=== PATIENT | female | born 1945 ===

== ENCOUNTER → 2023-05-03 07:55 | Outpatient (REF) | payer MEDICARE, OTHER, SELFPAY | LOC: WOUND 07:55 | PROVIDERS: ATTENDING PHYSICIAN Surgery | DX: I87.2 Venous insufficiency (chronic) (peripheral) (principal); R60.1 Generalized edema; I73.00 Raynaud's syndrome without gangrene | CPT/HCPCS: 99203 ==

== ENCOUNTER 2023-05-23 06:13 | Day surgery (SDC) | payer MEDICARE, OTHER, SELFPAY ==
--- NOTE | 2023-04-19 10:19 | CM ---
Patient is scheduled for lumbar spine surgery on 05/23/23. Spoke with patient prior to surgery via telephone. Introduced role of the Orthopedic Navigator. Patient reports that she lives with her significant other, Stephen, in a one floor apartment. There
is one step to enter. She currently functions independently using a cane. She also has a rolling walker, brace, shower seat and raised toilet seat. She has never had VN services. PCP is Roger Dixon.
Discussed orthopedic program, post surgical plans and tentative plan for patient to return home when directed by surgeon. Patient is in agreement with tentative plan and will have support from her significant other when she goes home.
Plan: Orthopedic Navigator will remain available to assist with the care of patient and will reassess discharge needs after surgery.
[2023-05-01 08:41] VITALS: BMI 33.8
[2023-05-01 15:25] VITALS: BMI 33.8
[2023-05-23] VITALS (16 sets, daily range): BP systolic 0–142; BP diastolic 45–74; PULSE 62; O2SAT 98; BMI 33.8
[2023-05-23] MEDS: TYLENOL 1000 MG PO ×3 (08:35→21:26)
[2023-05-23] MEDS: LYRICA 150 MG PO (08:35)
[2023-05-23] MEDS: SKELAXIN 800 MG PO (08:35)
[2023-05-23] MEDS: NORMOSOL-R 1000 IV ×2 (08:36→14:21)
[2023-05-23] MEDS: VANCOCIN 300 MG IV (08:40)
[2023-05-23] MEDS: VANCOCIN 300 ML IV (08:40)
--- NOTE | 2023-05-23 14:54 | PTCARENOTE ---
Patient admitted from pacu post right L3-L5 Laminectomy with psf.Neurovascular assessment is within normal limits and ongoing.The back dressing is dry and intact.Vital signs are stable.Physical therapy is in the room waiting to get the patient out
of bed.The patient is in her bed with the call snyder in reach.
[2023-05-23] MEDS: ULTRAM 50 MG PO (17:23)
[2023-05-23] MEDS: ANCEF 5 IV (17:24)
[2023-05-23] MEDS: NORMOSOL-R IV (20:25)
[2023-05-23] MEDS: REQUIP 2 MG PO (20:27)
[2023-05-23] MEDS: SENOKOT 17.1999999999999993 MG PO (20:27)
[2023-05-23] MEDS: COLACE 100 MG PO (20:27)
--- NOTE | 2023-05-24 00:11 | PTCARENOTE ---
Pt's temperature oral and axillary have remained low 94.4, rectal at this time 94.7. Pt reports she usually is 96.0. Pt provided warm blankets at this time, will revaluate. BP WNL HR 50
[2023-05-24] MEDS: ANCEF 5 IV (01:08)
[2023-05-24] MEDS: NORMOSOL-R 1000 IV (01:10)
--- NOTE | 2023-05-24 01:41 | PTCARENOTE ---
body temp remains low after warm blankets, house provider notified, Kevin Sykes ordered.
--- NOTE | 2023-05-24 03:00 | PTCARENOTE ---
Pt voided previous shift, pt reports she feels like she does not need to void and does not want to attempt @ this time. Bladder scan for 380ml. Pt encouraged to try again
[2023-05-24 03:54] VITALS: BP 123/58
[2023-05-24] MEDS: TYLENOL PO (04:01)
--- NOTE | 2023-05-24 04:06 | PTCARENOTE ---
Kevin Hugger in place, body temp slowly increasing. Pt denies any discomfort cont to monitor settings and skin.
[2023-05-24] MEDS: ULTRAM 50 MG PO (05:44)
--- NOTE | 2023-05-24 05:55 | PTCARENOTE ---
Pt voided for moderate amount of urine at this time
--- NOTE | 2023-05-24 05:57 | PTCARENOTE ---
Pt OOB at this time, axillary temp 96.7, Kevin Ugger on hold, warm blankets provided.
[2023-05-24 06:24] LABS: Hematocrit 31.2 % (37.0-47.0); Hemoglobin 10.1 g/dL (12.0-16.0)
[2023-05-24 07:00] LABS: Blood Urea Nitrogen 20 mg/dl (7-17); Calcium 8.5 mg/dl (8.4-10.2); Carbon Dioxide 28 mmol/L (22-30); Chloride 102 mmol/L (98-107); Estimated Creatinine Clearance 60 ml/min; Glucose 113 mg/dl (70-99); Potassium 4.6 mmol/L (3.5-5.1); Sodium 133 mmol/L (135-145); eGFR > 60.00
[2023-05-24 08:10] VITALS: BP 104/40
--- NOTE | 2023-05-24 09:10 | CM ---
Reviewed chart and held rounds with PT, OT and RN. Patient had planned lumbar spine surgery with Dr. Abbasi on 05/23/23. Met with patient at bedside. Confirmed information previously obtained for assessment and discussed discharge plans. Patient
continues to plan to return home at discharge. She will have support from her SO when she goes home. Reviewed that she will work with PT/OT this morning and that discharge needs will depend on her functional status. However, no needs currently
identified.
Patient has a cane and rolling walker at home.
Patient will use [facility] pharmacy for discharge prescriptions.
[2023-05-24] MEDS: TYLENOL 1000 MG PO (09:18)
[2023-05-24] MEDS: COLACE PO (09:18)
[2023-05-24] MEDS: SENOKOT PO (09:18)
[2023-05-24] MEDS: REQUIP 2 MG PO (09:18)
[2023-05-24 09:30] VITALS: BP 93/40; PULSE 57; O2SAT 96
--- NOTE | 2023-05-24 10:01 | W.PN.ORTHO ---
Today's Communication / Plan
-
d/c
Assessment
.
Distal Motor Intact: Yes
Dressing:
Clean, dry and intact.
Plan
.
Surgery / Date: L3-4-5 rayne-lami psf w/ inst. Dr. Abbasi 05/23/23
Activity:
Out of bed.
PT/OT
Discharge Plan: Home
Subjective
.
.:
Patient resting comfortably.
Vital Signs and Labs
.
Vital Signs and Labs:
Lab Results
05/24/23 05:53
05/24/23 05:53
Temp Pulse Resp BP Pulse Ox
97.2 F 57 18 104/40 96
05/24/23 08:10 05/24/23 08:10 05/24/23 08:10 05/24/23 08:10 05/24/23 08:10
--- NOTE | 2023-05-24 10:09 | W.DS.TRANS ---
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
-
Discharge Instructions:
Sleep Apnea Risk Low
Discharge Diagnosis/Procedures L3-4-5 rayne-lami psf w/ inst. Dr. Abbasi 05/23/23
Diet As tolerated
Activity With Walker
Driving Restrictions No driving
Instructions:
Stand-Alone Forms: [facility] Lumbar D/C Inst.
Changes to Home Medications: Yes
Discharge Medications:
DC Medications w/original date entered in [employer]
fluoxetine 20 mg capsule 20 mg PO DAILY 04/25/23
metoprolol succinate 50 mg tablet,extended release 24 hr 50 mg PO DAILY 04/25/23
ropinirole 2 mg tablet 2 mg PO BID 04/25/23
Saccharomyces boulardii 250 mg capsule (Florastor) 250 mg PO BID #1 cap 05/24/23
acetaminophen 325 mg capsule (Tylenol) 650 mg PO QID #2 caps 05/24/23
cephalexin 500 mg capsule 500 mg PO QID infection prevention #20 caps 05/24/23
dexamethasone 4 mg tablet 4 mg PO BID inflammation #6 tabs 05/24/23
docusate sodium 100 mg capsule (Colace) 100 mg PO BID stool softner #1 cap 05/24/23
famotidine 20 mg tablet 20 mg PO HS GI prophylaxis #30 tabs 05/24/23
gabapentin 300 mg capsule 300 mg PO HS sleep/pain #10 caps 05/24/23
magnesium hydroxide 400 mg/5 mL oral suspension (Milk of Magnesia) 30 ml PO HS PRN Constipation #1 mL 05/24/23
oxycodone 5 mg tablet 5 mg PO Q4H PRN moderate-severe pain #20 tabs 05/24/23
sennosides 8.6 mg tablet (Senokot) 17.2 mg PO BID laxative #2 tabs 05/24/23
Home Medication Changes
cephalexin 500 mg capsule 500 mg PO QID infection prevention #20 caps 05/24/23
dexamethasone 4 mg tablet 4 mg PO BID inflammation #6 tabs 05/24/23
famotidine 20 mg tablet 20 mg PO HS GI prophylaxis #30 tabs 05/24/23
gabapentin 300 mg capsule 300 mg PO HS sleep/pain #10 caps 05/24/23
oxycodone 5 mg tablet 5 mg PO Q4H PRN moderate-severe pain #20 tabs 05/24/23
Pending Results: No
[2023-05-24] MEDS: SKELAXIN 800 MG PO (11:08)
== END 2023-05-24 13:15 | disposition home or self-care (01) ==
LOC: SDS 06:13
PROVIDERS: Physician Assistant Medical; ATTENDING PHYSICIAN Orthopaedic Surgery Orthopaedic Surgery of the Spine; FAMILY PHYSICIAN Internal Medicine
DX: M48.061 Spinal stenosis, lumbar region without neurogenic claudication (principal); M41.9 Scoliosis, unspecified; M43.16 Spondylolisthesis, lumbar region; M54.16 Radiculopathy, lumbar region; R60.0 Localized edema
CPT/HCPCS: 22612; 63047; 63048; 22614; 22842; 20930; 72100; 76000; 80048; 85014; 85018; 86900; 86901; 97162; 97166; 97530; C1713; C1776

== ENCOUNTER 2024-04-04 21:20 | Inpatient (IN) | payer MEDICARE, OTHER, SELFPAY ==
[2024-04-04] VITALS (13 sets, daily range): BP systolic 92–171; BP diastolic 48–81; BMI 35.9; BMI 34.8
[2024-04-04 18:11] LABS: % Basophils 1.3 % (0-2); % Eosinophils 1.5 % (0-6); % Immature Granulocytes 0.6 % (0-0.5); % Lymphocytes 28.3 % (20.5-51.1); % Monocytes 11.5 % (1.7-9.3); % Neutrophils 56.8 % (42.2-75.2); Absolute Basophils 0.1 10^3/uL (0-0.2); Absolute Eosinophils 0.1 10^3/uL (0-0.7); Absolute Lymphocytes 1.5 10^3/uL (1.2-3.4); Absolute Monocytes 0.6 10^3/uL (0.1-0.6); Absolute Neutrophils 3.1 10^3/uL (1.4-6.5); Hematocrit 18.5 % (37.0-47.0); Hemoglobin 4.9 g/dL (12.0-16.0); Mean Corp Hgb Conc. 26.5 g/dL (33.0-37.0); Mean Corpuscular Hgb 17.6 pg (27.0-31.0); Mean Corpuscular Volume 66.3 fL (81.0-99.0); Mean Platelet Volume 9.3 fL (7.4-10.4); Nucleated Red Blood Cells % 0.4 %; Platelet Count 237 10^3/uL (130-400); Red Blood Cell Count 2.79 10^6/uL (4.20-5.40); Red Cell Dist. Width 18.6 % (11.5-14.5); White Blood Cell Count 5.4 10^3/uL (4.8-10.8)
[2024-04-04 18:15] LABS: COVID-19 Antigen Negative (Negative)
[2024-04-04 18:18] LABS: ALT (SGPT) 15 U/L (0-35); AST (SGOT) 20 U/L (14-36); Albumin 3.9 g/dl (3.5-5.0); Alkaline Phosphatase 91 U/L (38-126); Blood Urea Nitrogen 9 mg/dl (7-17); Calcium 8.9 mg/dl (8.4-10.2); Carbon Dioxide 25 mmol/L (22-30); Chloride 99 mmol/L (98-107); Glucose 114 mg/dl (70-99); Potassium 3.8 mmol/L (3.5-5.1); Sodium 132 mmol/L (135-145); Total Bilirubin 0.6 mg/dl (0.2-1.3); Total Protein 6.2 g/dl (6.3-8.2); eGFR > 60.00
[2024-04-04 18:27] LABS: NT-proBNP 893 pg/ml
[2024-04-04 18:30] LABS: Anisocytosis 2+; Normal RBC Morphology No
[2024-04-04 18:31] LABS: Microcytosis 3+; Polychromasia 1+
[2024-04-04 18:32] LABS: Hypochromasia 2+; Spherocytes 2+; Target Cells 1+
--- NOTE | 2024-04-04 19:19 | ED.GENMED ---
History of Present Illness
General
Chief Complaint: Breathing Problem
Source: patient and family
Time Seen by Provider: 04/04/24 19:01
History of Present Illness
History of Present Illness:
This patient is a 78-year-old female presents emergency department with reports of progressive increasing shortness of breath/dyspnea on exertion associated with fatigue, lethargy, increasing sleep, and nonproductive cough. She denies fever but
does note chills. She denies nausea, vomiting, back pain, headache, dizziness. Patient was noted to be severely anemic here in the ER. She denies heavy nonsteroidal use and takes meloxicam 7.5 mg twice daily as directed. She denies bright red
blood per rectum, melena, hematochezia, hematemesis, nosebleeds, or other sources of bleeding. Her last colonoscopy was a few years ago and she was told that she does not need anymore. She states that she 'may be' has been having intermittent
chest discomfort particularly at night over the last couple days although none in the last 24 hours. She tried to donate blood last week and her hemoglobin at that time was noted to be 10.2. Daughter at bedside states that patient chews ice up to
6 pounds a day for a very long time.
Past History
Past History
ED Past Medical History: Other (Anemia, hypokalemia, COPD, hypertension)
ED Past Surgical History: Cholecystectomy and Orthopedic
Social History
Tobacco: Former smoker
Alcohol: Daily
Drug: None
Personal: Partner
Living: other
Phy Exam
Physical Exam
Physical Exam:
GENERAL: Alert , in no apparent distress
EYE: pupils equal and reactive, conjunctive a pale
NECK: Supple, no significant adenopathy.
ENT: o/p clr, mmm.
CARDIAC: Regular rate and rhythm .
LUNGS: Clear breath sounds bilaterally, no acute respiratory distress, no wheezes/rales/rhonchi
ABDOMEN: Soft, without focal tenderness, no r/g, no cvat
NEUROLOGICAL: Alert and oriented, no focal neuro deficits
SKIN: Warm and dry, skin intact.
MUSCULOSKELETAL: No edema, well perfused.
PSYCH: Normal and appropriate interaction.
Course
Orders/Labs/Results
Orders:
Orders
04/04/24 17:37
Electrocardiogram (*1) Urgent
Reason for Study: Shortness of Breath
04/04/24 17:38
EKG- Treatment ONCE
04/04/24 17:39
CR Chest - 2 Views Urgent
Comment:
Reason For Exam: sob
04/04/24 17:50
COVID-19 Antigen Urgent
Source: Nasal Swab
Complete Blood Count/With Diff Urgent
Comprehensive Metabolic Panel Urgent
NT-proBNP Urgent
Influenza A+B Rapid Molecular Urgent
[facility] Source: Nasal Swab
Specimen Description:
04/04/24 19:17
* Blood Bank Products Urgent
Blood Bank Products: *Packed RBC Leuko(PRBC's)
Quantity: 2
Transfuse Today: Yes
Reason: Anemia
Type And Crossmatch [Type+Screen] Urgent
04/04/24 19:18
IV Insert/Care/Rem.- Treatment PRN
Abnormal Lab Results
04/04/24
17:50
RBC 2.79 L 10^6/uL
(4.20-5.40)
Hgb 4.9 L* g/dL
(12.0-16.0)
Hct 18.5 L* %
(37.0-47.0)
MCV 66.3 L fL
(81.0-99.0)
MCH 17.6 L pg
(27.0-31.0)
MCHC 26.5 L g/dL
(33.0-37.0)
RDW 18.6 H %
(11.5-14.5)
Immature Gran % 0.6 H %
(0-0.5)
Monocytes % 11.5 H %
(1.7-9.3)
Sodium 132 L mmol/L
(135-145)
Glucose 114 H mg/dl
(70-99)
Total Protein 6.2 L g/dl
(6.3-8.2)
04/04/24 17:50
04/04/24 17:50
Vital Signs
Initial and Last Documented VS:
Initial Vital Signs
Temp Pulse Resp BP Pulse Ox
98.2 F 95 20 171/67 88
04/04/24 17:33 04/04/24 17:33 04/04/24 17:33 04/04/24 17:33 04/04/24 17:33
Last Documented Vital Signs
Temp Pulse Resp BP Pulse Ox
98.1 F 91 21 171/67 100
04/04/24 18:00 04/04/24 19:00 04/04/24 19:00 04/04/24 17:33 04/04/24 19:00
Update Note
Update Note:
Patient presents to the Emergency Department with ____fatigue, dyspnea, cough
Number and Complexity of Problems Addressed at the Encounter
� Chronic conditions affecting care:
� Acute Exacerbation and/or Progression of Chronic Illness:
� Differential Diagnosis includes: But not limited to anemia, pneumonia, ACS, etc. etc.
Amount and/or Complexity of Data to be Reviewed and Analyzed
� I performed an independent evaluation of and my interpretation is:
EKG: Read by me, normal sinus rhythm, normal rate, normal axis, no acute ischemia
CT:
Xrays:read by me ?pna
Laboratory Studies: Severe anemia noted with a hemoglobin of 4.9, microcytic, mild hyponatremia
Other:
� Review of other/old records reveals: Hemoglobin noted to be 10.1 upon hospitalization May 2023 for laminectomy
� Clinical information was obtained by an independent historian: Daughter who is at bedside
� Prescriptions/Medications Considered but not given:
� Further testing considered but not performed:
Risk of Complications and/or Morbidity or Mortality of Patient Management
� Social determinants of health affecting care:
� Discussion with other providers (PCP, Hospitalists, Consultants, etc):
� Escalation of care including admission/observation vs risk of discharge considered: Pt was at before arrival here, dx'd with pna. Upon review of cxr, not convinced it is def a pna noted, will await formal report before
starting abx. Pt verbally consented for tx.
Patient initially hypoxic upon presentation this is relieved with nasal cannula and patient states she feels better, no active complaints, no chest pain etc. Case discussed with Dr. Shaffer for admission, transfusion ordered.
ED Attending Note
-
Portions of this chart may have been created with voice recognition software.� Occasional wrong word or��sound alike� substitutions may have occurred due to the inherent limitations of voice recognition software.
Discharge Plan
Departure
Patient Disposition: Admit
Date of Disposition: 04/04/24
Time of Disposition: 19:26
Presentation/result/management discussed w/ accepting MD/DO: Hospitalist
Prescriptions:
No Action
metoprolol succinate 50 mg Tablet Extended Release 24 Hr
50 mg PO DAILY
ropinirole 2 mg Tablet
2 mg PO BID
fluoxetine 20 mg Capsule
20 mg PO DAILY
sennosides [Senokot] 8.6 mg tablet
17.2 mg PO BID Qty: 2 0RF
famotidine 20 mg tablet
20 mg PO HS Qty: 30 0RF
Rx Instructions:
post-op
magnesium hydroxide [Milk of Magnesia] 400 mg/5 mL suspension
30 ml PO HS PRN (Reason: Constipation) Qty: 1 0RF
dexamethasone 4 mg tablet
4 mg PO BID Qty: 6 0RF
Rx Instructions:
take with food
post-op use only
docusate sodium [Colace] 100 mg capsule
100 mg PO BID Qty: 1 0RF
gabapentin 300 mg capsule
300 mg PO HS Qty: 10 0RF
oxycodone 5 mg tablet
5 mg PO Q4H PRN (Reason: moderate-severe pain) Qty: 20 0RF
Rx Instructions:
Dx surgery
ongoing therapy
Post-op use
Saccharomyces boulardii [Florastor] 250 mg capsule
250 mg PO BID Qty: 1 0RF
acetaminophen [Tylenol] 325 mg capsule
650 mg PO QID Qty: 2 0RF
cephalexin [cephalexin] 500 mg capsule
500 mg PO QID Qty: 20 0RF
Referrals:
Roger Dixon DO [Family Provider] -
Interventions
Interventions:
*Risk Screen - Suicide Last Done: 04/04/24 18:55
*General Assessment Last Done: 04/04/24 18:55
*Neglect/Abuse Screening Last Done: 04/04/24 18:55
ED- Fall Risk Assessment Last Done: 04/04/24 18:55
ED- Cardiac Assessment Last Done: 04/04/24 18:55
ED- Pulmonary Assessment Last Done: 04/04/24 18:55
Discharge Date and Time
Print Language: SAMI
--- NOTE | 2024-04-04 21:08 | HPS.HSE ---
Family Physician
-
Family Physician: Roger Dixon
Chief Complaint
-
Fatigue
History of Present Illness
Patient is a 78y F with PMH significant for restless leg syndrome and DJD who presents to ED complaining of generalized weakness and fatigue. History obtained from patient and family at the bedside. Patient has been extremely fatigued for the
past several days - and has basically been asleep or abed since [place]. This is extremely unusual for her. Today her neighbor came to visit and encouraged her to present to the Urgent Care for evaluation. At the Urgent Care, patient was noted
to be pale appearing. She had a CXR which reportedly showed 'bilateral pneumonia' and she was sent to the ED for further evaluation. In the ED she is noted to have a Hgb of 4.9g/dL.
Patient denies any evident blood loss - including epistaxis, hemoptysis, hematemesis or hematochezia / melena.
She notes that she attempted to donate blood one week ago and was told her Hgb at that time was 10.2 g/dL.
Patient / daughter also note that she eats about 6 pounds of ice on a daily basis - and has done so for years.
Patient reports that she has not felt well since [place] COVID-19 about 2 years ago.
She has had episodic fatigue and SOB since that time. She has a chronic / ongoing cough. She has apparently had frequent episodes of pneumonia.
Patient monitors her oxygen saturations at home and notes that they will occasionally fall into the 70s - 80s (reports one episode in the 40s, which seems unlikely) and then improve with rest.
She does not use home O2 and she has not seen a Bilingual Interpreter.
About 6 weeks ago patient saw her PCP for knee pain. During that visit she was noted to cough. A CXR was done then that reportedly showed pneumonia and patient was treated with a Z-pack.
She has not had additional abx since that time. She denies any other new medications.
Medical History
Past Medical History
Past Medical History: Reports Other
Additional Past Medical History:
Venous Stasis Dermatitis
Chronic Lymphedema
Lumbar DDD
Restless Leg Syndrome
DJD
Chronic Anemia
Past Surgical History: Reports Other
Additional Past Surgical History:
Cervical Spine Surgery
Lumbar Spine Surgery
Cholecystectomy
Carpal Tunnel Release
Cataracts
Left Bunionectomy
Social History
Tobacco: Former Smoker (Quit smoking in 1987.)
Alcohol: Occasional
Drug: None
Family History
Family History: Not pertinent
Allergies / Home Medications
Allergies reflects when Allergies were last updated in [employer].
Home Medications with original date entered in [employer]
Allergy/Medication List:
Allergies
Allergy/AdvReac Type Severity Reaction Status Date / Time
codeine Allergy Itching Verified 04/04/24 18:43
latex Allergy rash, Verified 04/04/24 18:43
itching
nickel Allergy rash, Verified 04/04/24 18:43
itcing
Sulfa (Sulfonamide Allergy rash, Verified 04/04/24 18:43
Antibiotics) itching
Home Medications
ropinirole 2 mg tablet 2 mg PO BID 04/25/23
meloxicam 7.5 mg tablet 7.5 mg PO BID 04/04/24
sennosides 15 mg tablet 15 mg PO DAILYPRN PRN constipation 04/04/24
Review of Systems
-
History Source: Patient
A 12 point ROS was completed and negative except as noted: Yes
Constitutional: Reports Fatigue and Chills; Denies Fever
EENT: Denies Sore Throat or Runny Nose
Respiratory: Reports Cough and Trouble Breathing
Cardiac: Denies Chest Pain or Palpitations
Abdomen/GI: Reports Constipated; Denies Abdominal Pain, Nausea, Vomiting, Diarrhea, Bloody Stools or Black Stools
: Denies Dysuria, Frequency, Flank Pain or Bleeding
Musculoskeletal: Reports Edema; Denies Joint Pain
Skin: Reports Other (chronic LE skin changes / nodularity)
Neurological: Reports Weakness; Denies Dizzy or Headache
Psych: Denies Depression or Anxiety
Physical Exam
Vital Signs
Vital Signs
Temp Pulse Resp BP Pulse Ox
97.8 F 89 16 167/61 100
04/04/24 21:00 04/04/24 21:00 04/04/24 21:00 04/04/24 21:00 04/04/24 21:00
Physical Exam
General: Other (78y F in no acute distress.)
HEENT: Moist mucous membranes, PERRLA and Other (Pale conjunctiva.)
Respiratory: Other (Decreased at the bases - otherwise clear.)
Cardiac: S1/S2, Regular Rhythm and Murmur (II/ STEFANIA)
GI: Soft, Non Tender, Non Distended and Normal Bowel Sounds
Musculoskeletal: No Clubbing, No Cyanosis and Other (3+ pitting edema with nodular skin changes b/l LEs. No skin breakdown / ulcerations.)
Neuro: AO x 3 and Nonfocal/grossly intact
Laboratory Results
-
04/04/24 17:50
04/04/24 17:50
Laboratory Results
Total Bilirubin 0.6 mg/dl (0.2-1.3) 04/04/24 17:50
AST 20 U/L (14-36) 04/04/24 17:50
ALT 15 U/L (0-35) 04/04/24 17:50
Alkaline Phosphatase 91 U/L (38-126) 04/04/24 17:50
Impression/Plan
-
A/P: Patient is a 78y F with PMH significant for DJD, DDD and restless leg syndrome who presents to ED complaining of fatigue.
Symptomatic / Severe Microcytic Anemia
- Admit for further evaluation and treatment.
- No evident source of bleeding / cause of anemia.
- Heme negative rectal exam in the ED by me - though paucity of stool in rectal vault.
- Suspect iron deficiency and occult blood loss remains most likely etiology.
- Heme test any additional stools.
- Check iron studies, retic count, etc.
- GI consult for further recommendations.
- Follow for clinical improvement with transfusion (ordered / started in the ED).
Suspected COPD
Hypoxemic Respiratory Insufficiency - Likely Chronic
- No evidence of pneumonia either clinically nor by exam or CXR.
- Suspect that recurrent basilar x-ray findings are on the basis of atelectasis.
- With intermittent hypoxemia 0- would recommend formal Pulm evaluation.
- Pulm consulted for additional recommendations.
- Will likely benefit from formal PFTs +/- initiation of inhaler therapy.
- Encourage IS.
- Follow for any new symptoms / complaints.
DDD / DJD
- Stable. Patient does not use NSAIDs other than meloxicam for pain control.
Restless Leg Syndrome
- Stable. Continue ropinirole.
Chronic Lymphedema
Chronic Venous Stasis Dermatitis
- Stable. Follow for any changes.
DVT Prophylaxis: SCDs
Code Status: Full
[2024-04-04 22:41] LABS: Reticulocyte Count 2.5 % (0.4-2.8)
[2024-04-04 22:58] LABS: Iron 21 ug/dl (37-170)
[2024-04-04 23:08] LABS: Percent Saturation 4 % (20-50); Total Iron Binding Capacity 474 ug/dl (265-497)
[2024-04-05] VITALS (14 sets, daily range): BP systolic 116–196; BP diastolic 67–85
--- NOTE | 2024-04-05 01:06 | PTCARENOTE ---
Pt arrived from ED via stretcher and into bed 339-2 with staff assistance. Pt AAOx3, oriented to room, call snyder within reach, able to make needs known. Will continue to monitor pt.
[2024-04-05 03:30] LABS: TSH Reflex To Free T4 2.83 uIU/ml (0.47-4.68)
[2024-04-05 03:49] LABS: Vitamin B12 361 pg/ml (239-931)
[2024-04-05 05:53] LABS: Hematocrit 23.4 % (37.0-47.0); Hemoglobin 6.7 g/dL (12.0-16.0); Mean Corp Hgb Conc. 28.6 g/dL (33.0-37.0); Mean Corpuscular Hgb 20.2 pg (27.0-31.0); Mean Corpuscular Volume 70.5 fL (81.0-99.0); Platelet Count 245 10^3/uL (130-400); Red Blood Cell Count 3.32 10^6/uL (4.20-5.40); Red Cell Dist. Width 21.3 % (11.5-14.5); White Blood Cell Count 5.6 10^3/uL (4.8-10.8)
[2024-04-05 06:06] LABS: Blood Urea Nitrogen 7 mg/dl (7-17); Calcium 8.7 mg/dl (8.4-10.2); Carbon Dioxide 26 mmol/L (22-30); Chloride 99 mmol/L (98-107); Estimated Creatinine Clearance 70 ml/min; Glucose 100 mg/dl (70-99); Potassium 4.1 mmol/L (3.5-5.1); Sodium 133 mmol/L (135-145); eGFR > 60.00
[2024-04-05] MEDS: DUONEB 3 ML INH ×4 (08:45→21:09)
[2024-04-05] MEDS: PROTONIX IV 40 MG IV ×2 (09:08→19:47)
[2024-04-05] MEDS: NSS (PRESERVATIVE FREE) 10 ML IV ×2 (09:08→19:47)
[2024-04-05] MEDS: REQUIP 2 MG PO ×2 (09:08→19:47)
[2024-04-05] MEDS: COLACE PO ×2 (09:11→19:46)
--- NOTE | 2024-04-05 14:16 | PTCARENOTE ---
pt IV leaking during blood transfusion. blood stopped temporarily and new IV placed. blood resumed in new LFA IV.
--- NOTE | 2024-04-05 14:48 | W.PN.HOSP.TC ---
Today's Communication/Plan
-
Start IV PPI twice daily for now
CLD pending GI eval
Transfuse 1 more unit PRBC
Trend CBC
IV iron after blood today
Assessment / Plan
Assessment / Plan
#Symptomatic microcytic anemia
#H/O PUD
-Unclear etiology, differentials include occult GIB versus severe iron deficiency; low suspicion for hemolysis or consumptive process
-Iron studies, did not include ferritin, but iron levels very low with high normal TIBC consistent with TRAN
-Patient states she has had colonoscopies in the past, was told she did not need any more
-States that she does have a distant history of peptic ulcer disease
-Initial hemoglobin 4.9, s/p 2 units of PRBC with hemoglobin 6.7
-Start twice daily IV PPI due to PUD history, avoid NSAIDs
-Transfuse 1 more unit PRBC today, repeat CBC after
-Start IV iron infusions daily after next unit of PRBC
-Trend CBC closely
#Hypoxemic respiratory insufficiency
#Suspected COPD
-Likely chronic, pulm was consulted for intermittent hypoxemia
-No obvious acute findings on x-ray; on RA at time of my eval today
-Would likely benefit from outpatient PFTs, 6 MWT, possibly HRCT
-Follow-up pulm recommendation
-Bronchodilators as needed
#Restless leg syndrome
-Stable on home ropinirole
#Chronic lymphedema with venous stasis dermatitis
-Monitor volume status clinically
-Encourage use of compression stockings
DVT prophylaxis: SCDs
Diet: CLD pending GI eval
CODE STATUS: Full code
Anticipated Discharge: > 48 hours
Subjective/Interval History
-
Date of Service: April 05, 2024
Seen and examined the bedside. No acute events reported overnight. AFVSS at time of my eval today
Received 2 units of PRBC with repeat hemoglobin 6.7 this morning
States she feels better, has no acute complaints as of this morning
Objective Data
-
Labs:
Laboratory Results
04/05/24 04/05/24
05:17 18:00
WBC 5.6 Pending
Hgb 6.7 L* D Pending
Hct 23.4 L Pending
Plt Count 245 Pending
Sodium 133 L
Potassium 4.1
Chloride 99
Carbon Dioxide 26
BUN 7
Creatinine 0.7
Glucose 100 H
Calcium 8.7
Vital Signs:
Vital Signs
Temp Pulse Resp BP Pulse Ox
98.4 F 102 16 167/76 99
04/05/24 13:33 04/05/24 13:33 04/05/24 13:33 04/05/24 13:33 04/05/24 12:26
I&O
04/04/24 04/05/24 04/06/24
06:59 06:59 06:59
Intake Total 500 / 500 0 / 0
Balance 500 / 500 0 / 0
Review of Systems
-
History Source: Patient
All other systems: Reviewed and negative
Physical Exam
-
General: Well Developed, No Apparent Distress, Comfortable and Obese
HEENT: Normocephalic, Atraumatic, Moist Mucous Membranes and Anicteric
Respiratory: Clear to Auscultation and Non Labored Respirations; Negative Wheezes, Rales or Rhonchi
Cardiac: Regular Rhythm and S1/S2; Negative Murmur, Rub or Gallop
GI: Soft, Nontender, Nondistended and Normal Bowel Sounds
Musculoskeletal: No Clubbing, No Cyanosis and No Edema
Skin: Warm, Dry and Normal Turgor; Negative Rash or Jaundice
Neuro: AO x 3 and Nonfocal/Grossly Intact
Psych: Calm
--- NOTE | 2024-04-05 15:35 | CON.GI ---
Consultation
-
Date/Time Consultation Requested: 04/04/2024
Date/Time Consultation Performed: 04/05/2024
Requesting Provider: Hospitalist
Performing Provider: Gabby KANG
Reason for Consultation: anemia
Medical History
Chief Complaint / HPI
Chief Complaint: Fatigue
History of Present Illness:
78-year-old female with below mentioned past medical history admitted to ED complaining of generalized weakness/fatigue for the past few days .noted to have hemoglobin of 4.9 in ED. Patient was treated for pneumonia with Z-Dawit few weeks back by
PCP. Denies any hematemesis/dark stool/hematochezia/epistaxis.
Past Medical History
Past Medical History: Other (Venous Stasis Dermatitis Chronic Lymphedema Lumbar DDD Restless Leg Syndrome DJD Chronic Anemia)
Past Surgical History: Other (Cervical Spine Surgery Lumbar Spine Surgery Cholecystectomy Carpal Tunnel Release Cataracts Left Bunionectomy)
Social History
Tobacco: Former Smoker
Alcohol: Occasional
Drug: None
Allergies / Home Medications
Allergy/AdvReac Type Severity Reaction Status Date / Time
codeine Allergy Itching Verified 04/04/24 18:43
latex Allergy rash, Verified 04/04/24 18:43
itching
nickel Allergy rash, Verified 04/04/24 18:43
itcing
Sulfa (Sulfonamide Allergy rash, Verified 04/04/24 18:43
Antibiotics) itching
�Medication �Instructions �Recorded
ropinirole 2 mg tablet 2 mg PO BID 04/25/23
meloxicam 7.5 mg tablet 7.5 mg PO BID 04/04/24
sennosides 15 mg tablet 15 mg PO DAILYPRN PRN constipation 04/04/24
Review of Systems
Vital Signs
Temp Pulse Resp BP Pulse Ox
98.4 F 102 16 167/76 99
04/05/24 13:33 04/05/24 13:33 04/05/24 13:33 04/05/24 13:33 04/05/24 12:26
Physical Exam
Exam
General: Well Developed and No Apparent Distress
Cardiac: S1/S2
GI: Soft, Non Tender, Non Distended and Normal Bowel Sounds
Neuro: AO x 3
Results
WBC 5.6 10^3/uL (4.8-10.8) 04/05/24 05:17
Hgb 6.7 g/dL (12.0-16.0) L* D 04/05/24 05:17
Hct 23.4 % (37.0-47.0) L 04/05/24 05:17
MCV 70.5 fL (81.0-99.0) L 04/05/24 05:17
Plt Count 245 10^3/uL (130-400) 04/05/24 05:17
Absolute Neuts (auto) 3.1 10^3/uL (1.4-6.5) 04/04/24 17:50
Sodium 133 mmol/L (135-145) L 04/05/24 05:17
Potassium 4.1 mmol/L (3.5-5.1) 04/05/24 05:17
Chloride 99 mmol/L (98-107) 04/05/24 05:17
Carbon Dioxide 26 mmol/L (22-30) 04/05/24 05:17
BUN 7 mg/dl (7-17) 04/05/24 05:17
Creatinine 0.7 mg/dL (0.6-1.0) 04/05/24 05:17
Calcium 8.7 mg/dl (8.4-10.2) 04/05/24 05:17
Total Bilirubin 0.6 mg/dl (0.2-1.3) 04/04/24 17:50
AST 20 U/L (14-36) 04/04/24 17:50
ALT 15 U/L (0-35) 04/04/24 17:50
Alkaline Phosphatase 91 U/L (38-126) 04/04/24 17:50
Diagnostic Image Results:
Prior GI Procedures:
EGD/ Colonoscopy: Over 10 years back unable to recall
Assessment / Plan
-
78-year-old female with past medical history of chronic lymphedema, DDD, possible COPD admitted with generalized weakness/fatigue. Noted to have severe anemia with hemoglobin of 4.9 in ED. Hb was 10.1 (05/2023 )
WBC 5.4/Hb 4.9/MCV 66.3/platelets 237
Sodium 132/potassium 3.8/serum creatinine 0.7. Liver test normal
Iron 21/TIBC 474/percentage saturation 4. B12 361
CXR-infiltrates within the bilateral lung base, more pronounced on the right, suspicious for multifocal pneumonia
--Severe symptomatic iron deficient anemia. No overt GI bleeding. Heme-negative stool in ED. Last EGD/colonoscopy over 10 years back.
-- Suspected COPD, hypoxic respiratory insufficiency. Patient was on 2 L oxygen during admission. sat 96% on RA. As per RN it was removed this a.m. As per medical team low suspicion for pneumonia.
plan
-Continue monitor H&H. Transfuse to keep hemoglobin above 7
-Ferritin was not added with initial lab. s/p 3 units PRBC . Iron supplementation as per medical team
-Discussed about benefits and risk of endoscopic evaluation for anemia including EGD/colonoscopy. Discussed about inpatient versus outpatient workup since no overt GI bleeding. Patient would like to have EGD/colonoscopy while in the hospital.
Since patient has been off oxygen since this a.m we will reassess tomorrow a.m. and tentatively plan for EGD/colonoscopy on Sunday
Total Time Spent with Patient (in minutes): 55
-
-
Thank you for consultation and allowing me to participate in the patient's care. Please call the production bow maker GI physician during the after hours with any questions or concerns.
[2024-04-05] MEDS: APRESOLINE 10 MG IV (16:06)
[2024-04-05] MEDS: FERRLECIT 110 MG IV (16:06)
--- NOTE | 2024-04-05 16:08 | CM ---
Alert awake oriented patient who lives with her SO Ray a 1 story home with 1 steps to enter. She is independent in driving and all activates of daily living.She does use cane .Offered VN she declined need.Pt receiving blood transfusion .
No VN in past . No SNF hx
Pharmacy [facility]
PCP Dr Dixon
PLAN Home with no needs
--- NOTE | 2024-04-05 16:30 | CON.PUL ---
Consultation
Consultation Request
Date/Time Consultation Requested: 04/05
Date/Time Consultation Performed: 04/05
Reason for Consultation: Shortness of breath
Medical History
-
History of Present Illness:
History obtained from the hospital information, patient. Patient is a 78-year-old female with history of chronic lymphedema, restless leg syndrome, chronic back pain, DJD who does not routinely see a physician. She states she has been short of
breath for months. She also describes persistent fatigue. She went to urgent care on , had a chest x-ray which showed pneumonia. Patient was instructed to go to the hospital although appears that she did not. She presents to
[facility] on 04/04 where upon arrival she is afebrile, pulse 95, breathing at 20, blood pressure 171/67, 88%. Patient states that she checks her saturation at home and it routinely goes down into the 70s around 79%. This happens randomly
and is happening for 'years'. She states she saw a travel med surg rn in the past but cannot recall. There is no data to suggest visits with pulmonary in the [facility]. We are asked to help from a pulmonary standpoint
She denies any PND, orthopnea. She does admit to chronic lower extremity swelling. She states her weight is stable. She does not see a supervisor laundry
.
PMH: Chronic DJD, history of laminectomy, history of anemia, History of COVID in 2021. She was told she had COPD by travel med surg rn in the past. History of restless leg syndrome, chronic lymphedema, cholecystectomy
Past Medical History
Past Medical History: None (See above)
Past Surgical History: None (See above)
Social History
Tobacco: Former Smoker (Quit 1987, less than [id number])
Alcohol: Occasional
Drug: None
Personal: Partner
Living: With Roomate (Lives with boyfriend)
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
Family History
Family History: Other (Family history negative for blood clots, lung disease)
Allergies / Home Medications
Allergies
Allergy/AdvReac Type Severity Reaction Status Date / Time
codeine Allergy Itching Verified 04/04/24 18:43
latex Allergy rash, Verified 04/04/24 18:43
itching
nickel Allergy rash, Verified 04/04/24 18:43
itcing
Sulfa (Sulfonamide Allergy rash, Verified 04/04/24 18:43
Antibiotics) itching
Home Medications
�Medication �Instructions �Recorded �Confirmed �Last Taken �Type
ropinirole 2 mg tablet 2 mg PO BID 04/25/23 04/04/24 04/04/24 History
meloxicam 7.5 mg tablet 7.5 mg PO BID 04/04/24 04/04/24 04/04/24 History
sennosides 15 mg tablet 15 mg PO DAILYPRN PRN constipation 04/04/24 04/04/24 04/03/24 History
Review of Systems
-
All other systems: Negative unless noted
Vitals / Labs / Diagnostic Testing
Vital Signs
Temp Pulse Resp BP Pulse Ox
98.5 F 85 18 182/78 98
04/05/24 16:02 04/05/24 16:04 04/05/24 16:04 04/05/24 16:02 04/05/24 16:04
Lab Data
04/05/24 05:17
Microbiology
04/04/24 17:50 Nasal Swab Influenza Types A & B (JEANNETTE) - Final
Negative for Influenza A & B, NAAT
Negative results must be combined with clinical observations
and patient history.
Nucleic Acid Amplification test (NAAT)performed on the
[employer] platform.
Diagnostic Testing:
Physical Exam
-
HEENT: Normocephalic and Anicteric
Cardiovascular: S1/S2, Regular Rhythm, Murmur (2/6 systolic murmur), Rub (n) and Peripheral Edema (1+)
Respiratory: Clear, Wheeze (n), Rales (n), Rhonchi (n) and Non-Labored Respirations
GI: Soft, Non Distended and Non Tender
Neurology: Awake, Alert and No Motor Deficits (Observed ambulating in the room)
Skin: Good Color
General: Comfortable
Assessment
-
78-year-old female with history of persistent fatigue, chronic shortness of breath, intermittent hypoxia at home, told she had pneumonia on 04/02, presented to ED on 04/04. Found to have a hemoglobin less than 5. Heme-negative rectal exam in the
ED noted. We are asked to comment on shortness of breath
Acute hypoxic respiratory insufficiency, 88%
Severe anemia, hemoglobin 4.9
Heme-negative stool
Hyponatremia
Mildly elevated proBNP
Mild sinus tachycardia
Conditions present prior to admission
GERD, history of peptic ulcer disease
History of COPD, saw pulmonary in the past
Suspected sleep disordered breathing
Restless leg syndrome
Chronic venous stasis changes
Chronic lymphedema
Distant tobacco history, quit 1987
Plan/recommendations
At this time, patient appears to be comfortable. I observed her ambulating in the room without difficulty
She states she has desaturation events at home where she goes down to 79%. This is been going on for months. She has not sought medical care
Chest x-ray suggest mild bibasilar infiltrates, flattened diaphragm on the lateral noted
Patient does describe some right-sided Flank/rib discomfort
Moving forward
Not convinced that patient has pneumonia
It appears that she may have some chronic pleural-parenchymal process at the base with flattened diaphragm
Will check CT chest with high-resolution images in the a.m.
Bedside spirometry in a.m.
Ambulatory saturation in the a.m.
Would consider echocardiogram at some point. She has mild tachycardia on her EKG
I also suspect she has sleep disordered breathing although she denies this
She may require outpatient pulmonary follow-up with full PFT and additional testing as indicated
For now we will await above studies to comment on further testing as needed
Reviewed with patient
Will follow
[2024-04-05 18:16] LABS: Hemoglobin 7.8 g/dL (12.0-16.0); Mean Corpuscular Hgb 21.5 pg (27.0-31.0); Mean Corpuscular Volume 71.6 fL (81.0-99.0); Mean Platelet Volume 9.7 fL (7.4-10.4); Platelet Count 244 10^3/uL (130-400); Red Blood Cell Count 3.63 10^6/uL (4.20-5.40); Red Cell Dist. Width 22.1 % (11.5-14.5); White Blood Cell Count 7.5 10^3/uL (4.8-10.8)
[2024-04-06] VITALS (9 sets, daily range): BP systolic 130–200; BP diastolic 50–85; PULSE 95–104; O2SAT 94–95; BMI 34.5
[2024-04-06] MEDS: APRESOLINE 10 MG IV ×2 (03:53→15:39)
[2024-04-06] MEDS: DUONEB 3 ML INH ×4 (07:45→20:27)
[2024-04-06] MEDS: NSS (PRESERVATIVE FREE) 10 ML IV ×2 (08:40→20:16)
[2024-04-06] MEDS: PROTONIX IV 40 MG IV ×2 (08:40→20:16)
[2024-04-06] MEDS: REQUIP 2 MG PO ×2 (08:40→20:16)
[2024-04-06] MEDS: COLACE PO ×2 (08:40→20:25)
[2024-04-06] MEDS: NORVASC 2.5 MG PO (09:42)
[2024-04-06] MEDS: COZAAR 25 MG PO (09:42)
[2024-04-06 10:23] LABS: Blood Urea Nitrogen 5 mg/dl (7-17); Calcium 8.8 mg/dl (8.4-10.2); Carbon Dioxide 25 mmol/L (22-30); Chloride 100 mmol/L (98-107); Estimated Creatinine Clearance 81 ml/min; Glucose 120 mg/dl (70-99); Potassium 3.7 mmol/L (3.5-5.1); Sodium 135 mmol/L (135-145); eGFR > 60.00
[2024-04-06 11:23] LABS: % Basophils 1.5 % (0-2); % Eosinophils 3.1 % (0-6); % Immature Granulocytes 0.7 % (0-0.5); % Lymphocytes 22.3 % (20.5-51.1); % Monocytes 11.3 % (1.7-9.3); % Neutrophils 61.1 % (42.2-75.2); Absolute Basophils 0.1 10^3/uL (0-0.2); Absolute Eosinophils 0.2 10^3/uL (0-0.7); Absolute Lymphocytes 1.4 10^3/uL (1.2-3.4); Absolute Monocytes 0.7 10^3/uL (0.1-0.6); Absolute Neutrophils 3.7 10^3/uL (1.4-6.5); Hematocrit 27.7 % (37.0-47.0); Hemoglobin 8.2 g/dL (12.0-16.0); Mean Corp Hgb Conc. 29.6 g/dL (33.0-37.0); Mean Corpuscular Hgb 21.4 pg (27.0-31.0); Mean Corpuscular Volume 72.3 fL (81.0-99.0); Mean Platelet Volume 9.4 fL (7.4-10.4); Platelet Count 248 10^3/uL (130-400); Red Blood Cell Count 3.83 10^6/uL (4.20-5.40); Red Cell Dist. Width 22.4 % (11.5-14.5); White Blood Cell Count 6.1 10^3/uL (4.8-10.8)
[2024-04-06 11:24] LABS: Nucleated Red Blood Cells % 0.3 %
--- NOTE | 2024-04-06 11:31 | W.PN.GI.CBS2 ---
Today's Communication / Plan
-
Clear liquid diet
Bowel prep today
EGD/colonoscopy tomorrow
Assessment / Plan
-
78-year-old female with past medical history of chronic lymphedema, DDD, possible COPD admitted with generalized weakness/fatigue. Noted to have severe anemia with hemoglobin of 4.9 in ED. Hb was 10.1 (05/2023 )
WBC 5.4/Hb 4.9/MCV 66.3/platelets 237
Sodium 132/potassium 3.8/serum creatinine 0.7. Liver test normal
Iron 21/TIBC 474/percentage saturation 4. B12 361
CXR-infiltrates within the bilateral lung base, more pronounced on the right, suspicious for multifocal pneumonia
--Severe symptomatic iron deficient anemia. No overt GI bleeding. Heme-negative stool in ED. Last EGD/colonoscopy over 10 years back.
-- Suspected COPD, hypoxic respiratory insufficiency. Patient was on 2 L oxygen during admission. sat 96% on RA. As per RN it was removed this a.m. As per medical team low suspicion for pneumonia.
plan
-Repeat Hb this a.m. 8.2
-Ferritin was not added with initial lab. s/p 3 units PRBC . Iron supplementation as per medical team
-Discussed about benefits and risk of endoscopic evaluation for anemia including EGD/colonoscopy. Discussed about inpatient versus outpatient workup since no overt GI bleeding. Patient would like to have EGD/colonoscopy while in the hospital.
Bowel prep today. EGD/colonoscopy tomorrow
Total Time Spent with Patient (in minutes): 35
Subjective
Subjective
Date of Service: April 06, 2024
No GI bleeding
Objective
Data Reviewed
Laboratory Data:
Laboratory Results
04/06/24 09:55
04/06/24 09:55
Laboratory Results
Total Bilirubin 0.6 mg/dl (0.2-1.3) 04/04/24 17:50
AST 20 U/L (14-36) 04/04/24 17:50
ALT 15 U/L (0-35) 04/04/24 17:50
Alkaline Phosphatase 91 U/L (38-126) 04/04/24 17:50
Vital Signs and I&O:
Vital Signs
Temp Pulse Resp BP Pulse Ox
97.4 F 89 16 166/66 95
04/06/24 07:30 04/06/24 09:42 04/06/24 07:49 04/06/24 09:42 04/06/24 07:49
I&O
04/05/24 04/06/24 04/07/24
06:59 06:59 06:59
Intake Total 500 / 500 1510 / 1510
Balance 500 / 500 1510 / 1510
Physical Exam
Physical Exam
GI: Soft, Non Distended and Non Tender
[2024-04-06] MEDS: NULYTELY SOLUTION 4 LITERS PO (12:52)
--- NOTE | 2024-04-06 12:52 | W.PN.HOSP.TC ---
Today's Communication/Plan
-
Continue IV iron and trend CBC
Plan EGD/colonoscopy tomorrow
Start amlodipine and losartan for hypertension
Assessment / Plan
Assessment / Plan
#Symptomatic microcytic anemia
#H/O PUD
-Unclear etiology, differentials include occult GIB versus severe iron deficiency; low suspicion for hemolysis or consumptive process
-Iron studies, did not include ferritin, but iron levels very low with high normal TIBC consistent with TRAN
-Patient states she has had colonoscopies in the past, was told she did not need any more
-States that she does have a distant history of peptic ulcer disease
-Initial hemoglobin 4.9, s/p 3 units of PRBC with hemoglobin 8.2 this a.m.
-Continue with IV PPI and avoid NSAIDs due to PUD history
-Start IV iron infusions daily, day 2/5
-Plan for EGD/colonoscopy
-Trend CBC daily
#Hypoxemic respiratory insufficiency
#Newly diagnosed COPD
-Likely chronic, pulm was consulted for intermittent hypoxemia
-No obvious acute findings on x-ray; on RA at time of my eval today
-HRCT today with centrilobular emphysema, no signs of ILD/IPF
-Pulmonology planning for PFTs and 6 MWT
-Bronchodilators as needed
#Hypertension
-Stage II benign essential hypertension previously untreated
-Blood pressure significantly elevated here, SBP near 200 at time
-Ordering losartan 25 mg and amlodipine 2.5 mg to start today
-Uptitrate antihypertensive regimen as needed, BP goal <140/90
-Would avoid thiazides due to age
#Restless leg syndrome
-Stable on home ropinirole
#Chronic lymphedema with venous stasis dermatitis
-Monitor volume status clinically
-Encourage use of compression stockings
DVT prophylaxis: SCDs
Diet: CLD pending GI eval
CODE STATUS: Full code
Pending PT evaluation
Anticipated Discharge: 24 - 48 hours
Subjective/Interval History
-
Date of Service: April 06, 2024
Seen and examined at the bedside. No acute events reported overnight. AFVSS this morning
Hemoglobin uptrending to 8.2. HRCT today more consistent with centrilobular emphysema than interstitial lung disease
She states she feels well and has no acute complaints today
Objective Data
-
Labs:
Laboratory Results
04/06/24
09:55
WBC 6.1
Hgb 8.2 L
Hct 27.7 L
Plt Count 248
Sodium 135
Potassium 3.7
Chloride 100
Carbon Dioxide 25
BUN 5 L
Creatinine 0.6
Glucose 120 H
Calcium 8.8
Vital Signs:
Vital Signs
Temp Pulse Resp BP Pulse Ox
97.9 F 78 16 164/69 95
04/06/24 11:10 04/06/24 11:31 04/06/24 11:31 04/06/24 11:10 04/06/24 11:31
I&O
04/05/24 04/06/24 04/07/24
06:59 06:59 06:59
Intake Total 500 / 500 1510 / 1510
Balance 500 / 500 1510 / 1510
Review of Systems
-
History Source: Patient
All other systems: Reviewed and negative
Physical Exam
-
General: Well Developed, No Apparent Distress, Comfortable and Obese
HEENT: Normocephalic, Atraumatic, Moist Mucous Membranes and Anicteric
Respiratory: Clear to Auscultation, Non Labored Respirations and Decreased Breath Sounds; Negative Wheezes, Rales or Rhonchi
Cardiac: Regular Rhythm, S1/S2 and Murmur (2/6 STEFANIA); Negative Rub or Gallop
GI: Soft, Nontender, Nondistended and Normal Bowel Sounds
Musculoskeletal: No Clubbing, No Cyanosis and No Edema
Skin: Warm, Dry and Normal Turgor; Negative Rash
Neuro: AO x 3 and Nonfocal/Grossly Intact
Psych: Calm
Data Reviewed
-
Labs: Labs Reviewed by me and Discussed with Patient
[2024-04-06] MEDS: FERRLECIT 110 MG IV (13:20)
--- NOTE | 2024-04-06 15:37 | W.PN.PUL3 ---
Today's Communication / Plan
-
Add doxycycline p.o. twice a day for 7 days
She will require follow-up CT chest in about 4 to 6 weeks
Spirometry on Sunday, pending endoscopy Sunday
Strongly recommend outpatient HST and pulmonary follow-up
Assessment
-
78-year-old female with history of persistent fatigue, chronic shortness of breath, intermittent hypoxia at home, told she had pneumonia on 04/02, presented to ED on 04/04. Found to have a hemoglobin less than 5. Heme-negative rectal exam in the
ED noted. We are asked to comment on shortness of breath
Acute hypoxic respiratory insufficiency, 88%
Severe anemia, hemoglobin 4.9
Heme-negative stool
Right pleural effusion, subpleural consolidation
Cannot rule out pneumonia
Hyponatremia
Mildly elevated proBNP
Mild sinus tachycardia
Conditions present prior to admission
GERD, history of peptic ulcer disease
History of COPD, saw pulmonary in the past
Suspected sleep disordered breathing
Restless leg syndrome
Chronic venous stasis changes
Chronic lymphedema
Distant tobacco history, quit 1987
Plan/recommendations
At this time, patient appears to be comfortable. I observed her ambulating in the room without difficulty
Chest exam with decreased breath sounds right base
CT chest reviewed reveals small right pleural effusion with associated consolidation, air bronchograms
There is mild emphysema
She states she has desaturation events at home where she goes down to 79%. This is been going on for months. She has not sought medical care
Chest x-ray suggest mild bibasilar infiltrates, flattened diaphragm on the lateral noted
Patient does describe some right-sided Flank/rib discomfort
Moving forward
Not convinced that patient has pneumonia, will continue with antibiotics
We will treat with doxycycline 100 mg twice a day
It appears that she may have some chronic pleural-parenchymal process at the base with flattened diaphragm
With pulmonary follow-up she will require follow-up CT chest at some point
Discussed the possibility of an occult malignancy given her chronic symptoms
Discussed importance of pulmonary follow-up
Bedside spirometry to be completed on 04/08
Ambulatory saturation prior to discharge
Would consider echocardiogram at some point. She has mild tachycardia on her EKG
I also suspect she has sleep disordered breathing although she denies this
She may require outpatient pulmonary follow-up with full PFT and additional testing as indicated
For now we will await above studies to comment on further testing as needed
She is awaiting colonoscopy for anemia
Reviewed with patient
Will follow
Subjective Data
-
Date of Service:
Date of Service: April 06, 2024
Subjective:
Patient seen and examined earlier today. Late entry. Patient is taking prep for colonoscopy. Otherwise feels well. She denies pleurisy. Observed ambulating without difficulty. She remains on room air. She has a chronic dry cough. Review of
systems otherwise negative
Objective Data
Data Reviewed
Vital Signs / I&O / Oxygen:
Vital Signs
Temp Pulse Resp BP Pulse Ox
97.9 F 76 16 164/69 95
04/06/24 11:10 04/06/24 15:32 04/06/24 15:32 04/06/24 11:10 04/06/24 15:32
Intake and Output
04/05/24 04/06/24 04/07/24
06:59 06:59 06:59
Intake Total 500 / 500 1510 / 1510
Balance 500 / 500 1510 / 1510
SaO2 95
Nasal Cannula flow liters per 2
minute
Physical Exam
General: Comfortable
HEENT: Normocephalic and Anicteric
Cardiovascular: S1-S2, Regular Rhythm, Murmur (n) and Rub (n)
Respiratory: Wheeze (n), Crackles (n), Rhonchi (n), Non-Labored Respirations, Stridor (n) and Other (Slight decreased right base)
GI: Soft, Non Distended (Obese) and Non Tender
Neurology: Awake, Alert and No Motor Deficits (Observed ambulating)
Skin: Cyanosis (n), Jaundice (n) and Rash (n)
Labs/Micro/Reports
Lab Data
04/06/24 09:55
04/06/24 09:55
Microbiology
04/04/24 17:50 Nasal Swab Influenza Types A & B (JEANNETTE) - Final
Negative for Influenza A & B, NAAT
Negative results must be combined with clinical observations
and patient history.
Nucleic Acid Amplification test (NAAT)performed on the
[employer] platform.
--- NOTE | 2024-04-06 15:44 | PTCARENOTE ---
Addendum entered by Carolyn Goodwin RN 04/06/24 17:09:
New order provided, see MAR.
Original Note:
Pt c/o shaking and leg cramping. Mild tremors observed. Pt stated, 'I feel like my potassium is low'. made aware.
[2024-04-06] MEDS: KCL 40 MEQ PO (17:06)
[2024-04-06] MEDS: VIBRAMYCIN 100 MG PO (20:16)
[2024-04-07] VITALS (8 sets, daily range): BP systolic 121–166; BP diastolic 51–76; BMI 34.7; BMI 34.4
[2024-04-07] MEDS: COZAAR 25 MG PO (07:51)
[2024-04-07] MEDS: REQUIP 2 MG PO ×2 (07:51→20:10)
[2024-04-07] MEDS: VIBRAMYCIN 100 MG PO ×2 (07:51→20:10)
[2024-04-07] MEDS: NSS (PRESERVATIVE FREE) 10 ML IV ×2 (07:51→20:10)
[2024-04-07] MEDS: NORVASC 2.5 MG PO (07:51)
[2024-04-07] MEDS: PROTONIX IV 40 MG IV ×2 (07:51→20:09)
[2024-04-07] MEDS: COLACE PO ×2 (07:51→19:55)
[2024-04-07] MEDS: FLUSH (NSS) 2 FLUSH IV (07:53)
[2024-04-07] MEDS: DUONEB 3 ML INH ×3 (07:57→19:53)
--- NOTE | 2024-04-07 09:20 | W.PN.PUL3 ---
Today's Communication / Plan
-
Continue doxycycline p.o. twice a day for 7 days
She will require follow-up CT chest in about 4 to 6 weeks
Spirometry tomorrow
outpatient VCE per GI; continue PPI 40mg daily
Strongly recommend outpatient HST and pulmonary follow-up
Assessment
-
78-year-old female with history of persistent fatigue, chronic shortness of breath, intermittent hypoxia at home, told she had pneumonia on 04/02, presented to ED on 04/04. Found to have a hemoglobin less than 5. Heme-negative rectal exam in the
ED noted. We are asked to comment on shortness of breath
Impression:
Acute hypoxic respiratory insufficiency, 88%
Severe anemia, hemoglobin 4.9
Heme-negative stool
Iron deficiency anemia with iron saturation: 4%
Right pleural effusion, subpleural consolidation
Cannot rule out pneumonia
Hyponatremia
Mildly elevated proBNP
Mild sinus tachycardia - now resolved (was reactive due to anemia)
Conditions present prior to admission
GERD, history of peptic ulcer disease
History of COPD, saw pulmonary in the past
Suspected sleep disordered breathing
Restless leg syndrome
Chronic venous stasis changes
Chronic lymphedema
Distant tobacco history, quit 1987 with a [id number] history smoking 2 PPD x 15 years
Plan/recommendations
At this time, patient appears to be comfortable
CT chest reviewed reveals small right pleural effusion with associated consolidation, air bronchograms
There is mild emphysema, and she reports a history of COPD
She states she has desaturation events at home where she goes down to 79%. This is been going on for months. She has not sought medical care
Chest x-ray suggest mild bibasilar infiltrates, flattened diaphragm on the lateral noted
Patient does describe some right-sided flank/rib discomfort
Moving forward
We will treat with doxycycline 100 mg twice a day for possible RLL pneumonia
It appears that she may have some chronic pleural-parenchymal process at the base with flattened diaphragm
With pulmonary follow-up she will require follow-up CT chest at some point
Discussed the possibility of an occult malignancy given her chronic symptoms
Discussed importance of pulmonary follow-up
Bedside spirometry to be completed on 04/08
Ambulatory pulse oximetry prior to discharge
TTE today showed stage II diastolic dysfunction with abnormal relaxation and increased filling pressures with mild , trace AI and normal biventricular size and systolic function without regional WMA
I also suspect she has sleep disordered breathing although she denies this
She will require outpatient pulmonary follow-up with full PFT and additional testing as indicated
Endoscopy performed today with EGD + colonoscopy did not show any etiology for her anemia; follow-up cold forceps pathology from patchy mildly congested mucosa in the stomach as well as localized moderate mucosal changes in the stomach (biopsies
done to r/o celiac disease); follow-up pathology from 6 mm polyp removed from hepatic flexure
- GI is planning for outpatient video capsule endoscopy, and to continue Protonix 40 mg daily for now
Reviewed with patient
Will follow
Total time spent today was 36 minutes for this encounter. Time includes reviewing laboratory test/imaging results, reviewing pertinent medical records, obtaining and reviewing medical history, performing an appropriate exam, ordering medications,
tests and procedures. Time also includes documentation of this encounter, coordinating patient care and communicating with other healthcare professionals. Total time does not include separately billed tests performed on this date of service.
Subjective Data
-
Date of Service:
Date of Service: April 07, 2024
Chief Complaint: Pulmonary Follow Up
Subjective:
Patient seen and evaluated today at bedside. Patient's , Stephen, at bedside and all questions were answered. Patient currently on 2 L/min nasal cannula breathing comfortably. She says she still has some shortness of breath and a dry cough.
Wearing the oxygen does make her feel a lot better. Currently denies chest pain, NELSON, abdominal pain, nausea, fevers or chills.
Review of Systems
General: Other (Negative unless mentioned above)
Objective Data
Data Reviewed
Vital Signs / I&O / Oxygen:
Vital Signs
Temp Pulse Resp BP Pulse Ox
97.5 F 82 16 166/76 98
04/07/24 07:23 04/07/24 07:59 04/07/24 07:59 04/07/24 07:51 04/07/24 07:59
Intake and Output
04/06/24 04/07/24 04/08/24
06:59 06:59 06:59
Intake Total 1510 / 1510 3360 / 3360
Balance 1510 / 1510 3360 / 3360
SaO2 98
Nasal Cannula flow liters per 2
minute
Physical Exam
General: Respiratory Distress (negative), Comfortable, Chills (negative) and Sweats (negative)
HEENT: Normocephalic and Anicteric
Cardiovascular: S1-S2, Murmur (STEFANIA heard best at [facility]), Rub (n) and Peripheral Edema (+2 LE pitting edema)
Respiratory: Wheeze (n), Crackles (negative), Rhonchi (n), Non-Labored Respirations, Stridor (n) and Other (Slight decreased right base)
GI: Soft, Non Distended (Obese), Non Tender and Normal Bowel Sounds
Neurology: AO x 3 and Tremors (negative)
Skin: Warm, Dry, Cyanosis (n), Jaundice (n) and Rash (n)
Labs/Micro/Reports
Microbiology
04/04/24 17:50 Nasal Swab Influenza Types A & B (JEANNETTE) - Final
Negative for Influenza A & B, NAAT
Negative results must be combined with clinical observations
and patient history.
Nucleic Acid Amplification test (NAAT)performed on the
[employer] platform.
[2024-04-07 10:05] LABS: Blood Urea Nitrogen 4 mg/dl (7-17); Carbon Dioxide 25 mmol/L (22-30); Chloride 100 mmol/L (98-107); Estimated Creatinine Clearance 81 ml/min; Glucose 102 mg/dl (70-99); Sodium 134 mmol/L (135-145); eGFR > 60.00
[2024-04-07 10:12] LABS: % Basophils 1.7 % (0-2); % Eosinophils 4.3 % (0-6); % Immature Granulocytes 0.2 % (0-0.5); % Lymphocytes 24.6 % (20.5-51.1); % Monocytes 10.9 % (1.7-9.3); % Neutrophils 58.3 % (42.2-75.2); Absolute Basophils 0.1 10^3/uL (0-0.2); Absolute Eosinophils 0.3 10^3/uL (0-0.7); Absolute Lymphocytes 1.4 10^3/uL (1.2-3.4); Absolute Monocytes 0.6 10^3/uL (0.1-0.6); Absolute Neutrophils 3.4 10^3/uL (1.4-6.5); Hematocrit 29.1 % (37.0-47.0); Hemoglobin 8.4 g/dL (12.0-16.0); Mean Corp Hgb Conc. 28.9 g/dL (33.0-37.0); Mean Corpuscular Volume 72.8 fL (81.0-99.0); Nucleated Red Blood Cells % 0.5 %; Platelet Count 284 10^3/uL (130-400); Red Cell Dist. Width 23.4 % (11.5-14.5); White Blood Cell Count 5.8 10^3/uL (4.8-10.8)
[2024-04-07] MEDS: DUONEB INH (11:42)
--- NOTE | 2024-04-07 11:57 | W.PN.UPDATE ---
Update Note
Progress Note Update
Please see EGD/colon note for more details.
EGD/colo no explanation for TRAN.
Plan outpatient VCE I sent msg to our staff to set up with GI follow up afterwards.
GI will sign off.
Recommend follow up outpatient of CBC/iron studies.
Continue protonix 40 daily for now.
[2024-04-07] MEDS: FERRLECIT 110 MG IV (13:35)
--- NOTE | 2024-04-07 14:51 | W.PN.HOSP.TC ---
Addendum entered and electronically signed by Maureen Ku MD 04/07/24 19:50:
I saw and evaluated the patient independently. I reviewed the resident�s note and agree with findings and plan as documented by Dr. Monterroso.
GENERAL: well developed, well nourished, female in no apparent distress
HEENT: NC/AT--O2 [address]
HEART: regular rate and rhythm, +S1, +S2
LUNGS : clear to auscultation bilaterally
ABDOM: soft, nontender, nondistended, + bowel sounds
EXT: no cyanosis, clubbing, or edema
NEUROLOGIC: grossly intact
Symptomatic Iron Deficiency Anemia--Iron 21, TIBC 474, percent sat 4, ferritin 5--EGD and colonoscopy without reason for TRAN--apprec GI--for outpt capsule study--s/p 3 units pRBC and IV iron--cont PPI--oral at d/c--likely needs iron supps at d/c
too--avoid NSAIDs
Chronic Hypoxemic respiratory insufficiency--pt states that her pulse ox at home runs 79%-84%--had COPD--never seen pulmonology, outpt f/u--for PFTs, follow up chest CT in 4-6 weeks--assess for home O2-- HRCT with centrilobular emphysema, no signs
of ILD/IPF
Essential Hypertension-Blood pressure significantly elevated here, SBP near 200 at one time-Uptitrate antihypertensive regimen as needed, BP goal <140/90
Restless leg syndrome--Stable on home ropinirole
Chronic lymphedema with venous stasis dermatitis--Monitor volume status clinically--Encourage use of compression stockings
DVT prophylaxis: SCDs
CODE STATUS: Full code
Original Note:
Today's Communication/Plan
-
.
Assessment / Plan
Assessment / Plan
1. Symptomatic Iron Deficiency Anemia
-Iron 21, TIBC 474, percent sat 4, ferritin 5; consistent with TRAN
-Unclear etiology, differentials include occult GIB versus severe iron deficiency; low suspicion for hemolysis or consumptive process
-Patient states she has had colonoscopies in the past, was told she did not need any more
- EGD (04/07): Localized mucosal changes, biopsies taken and sent for histology. No evidence of bleed.
- Colonoscopy (04/07): No evidence of bleed, 6 mm polyp at the hepatic flexure removed, internal hemorrhoids.
-States that she does have a distant history of peptic ulcer disease.
-Initial hemoglobin 4.9, s/p 3 units of PRBC with hemoglobin 8.4 this morning, stable over the past 3 days.
-Continue with IV PPI and avoid NSAIDs due to PUD history.
- Transition to oral at d/c
-Start IV iron infusions daily, day 3/.
2. Hypoxemic respiratory insufficiency
- Patient notes a history of COPD that is not managed by a acquisitions logistics analyst.
- Likely chronic, pulm was consulted for intermittent hypoxemia
- No obvious acute findings on x-ray.
- HRCT with centrilobular emphysema, no signs of ILD/IPF
- Pulmonology planning for PFTs and 6 MWT
- Bronchodilators as needed
- Home O2 assessment tomorrow morning
- Outpatient follow up with pulmonology
3. Hypertension
-Stage II benign essential hypertension previously untreated
-Blood pressure significantly elevated here, SBP near 200 at one time
-Uptitrate antihypertensive regimen as needed, BP goal <140/90
- Patient currently stable in SBP 140-150 on Losartan 25mg PO qd and Amlodipine 2.5mg PO qd
4. Restless leg syndrome
-Stable on home ropinirole
5. Chronic lymphedema with venous stasis dermatitis
-Monitor volume status clinically
-Encourage use of compression stockings
DVT prophylaxis: SCDs
Diet: Regular
CODE STATUS: Full code
Pending PT evaluation
Anticipated Discharge: Within 24 hours
Subjective/Interval History
-
Date of Service: April 07, 2024
Patient seen and examined resting comfortably in bed. is also at bedside. Patient denies any acute complaints this morning, states that she is feeling much better since admission. Patient notes this morning that she has a history of COPD
that is not currently managed by a acquisitions logistics analyst. She denies using home oxygen, however, she notes that she takes oxygen saturations at home, and they can go as low as 79 to 80%. Denies any shortness of breath, chest pain, this morning.
Objective Data
-
Labs:
Laboratory Results
04/07/24
08:30
WBC 5.8
Hgb 8.4 L
Hct 29.1 L
Plt Count 284
Sodium 134 L
Potassium 4.0
Chloride 100
Carbon Dioxide 25
BUN 4 L
Creatinine 0.6
Glucose 102 H
Calcium 9.0
Vital Signs:
Vital Signs
Temp Pulse Resp BP Pulse Ox
98.6 F 82 17 156/71 96
04/07/24 12:49 04/07/24 12:49 04/07/24 12:49 04/07/24 12:49 04/07/24 12:49
I&O
04/06/24 04/07/24 04/08/24
06:59 06:59 06:59
Intake Total 1510 / 1510 3360 / 3360
Balance 1510 / 1510 3360 / 3360
Review of Systems
-
History Source: Patient
Constitutional: Reports No Symptoms
Respiratory: Reports No Symptoms
Cardiac: Reports No Symptoms
Abdomen/GI: Reports No Symptoms
Neuro: Reports No Symptoms
Physical Exam
-
General: Well Developed, Well Nourished, Comfortable and Conversant
HEENT: Normocephalic and Atraumatic
Respiratory: Clear to Auscultation and Decreased Breath Sounds
Cardiac: Regular Rhythm and S1/S2
GI: Soft and Nontender
Musculoskeletal: No Clubbing, No Cyanosis and No Edema
Skin: Warm and Dry
Neuro: Awake, Alert and Oriented
Psych: Calm
Data Reviewed
-
Medical Tests (Nuc Med, Echo etc): Report Reviewed by me and Discussed with Patient
Labs: Labs Reviewed by me and Discussed with Patient
--- NOTE | 2024-04-07 15:23 | CM ---
Patient seen at bedside with physician. Patient currently on home O2 and patient stated that she had never worn O2 previously. Patient for discharge home with no needs. CM will continue to follow for discharge planning needs.
Plan; home with no needs watch for home O2
[2024-04-08 03:00] VITALS: BP 130/44
[2024-04-08 06:00] VITALS: BMI 34.7
[2024-04-08] MEDS: DUONEB 3 ML INH ×2 (07:03→11:00)
[2024-04-08 07:40] VITALS: BP 161/85
[2024-04-08] MEDS: NSS (PRESERVATIVE FREE) 10 ML IV (07:51)
[2024-04-08] MEDS: REQUIP 2 MG PO (07:52)
[2024-04-08] MEDS: PROTONIX IV 40 MG IV (07:52)
[2024-04-08] MEDS: VIBRAMYCIN 100 MG PO (07:52)
[2024-04-08] MEDS: NORVASC 2.5 MG PO (07:52)
[2024-04-08] MEDS: COLACE 100 MG PO (07:52)
[2024-04-08] MEDS: COZAAR 25 MG PO (07:52)
--- NOTE | 2024-04-08 09:14 | W.PN.PUL3 ---
Today's Communication / Plan
-
Continue doxycycline p.o. twice a day for 7 days
She will require follow-up CT chest in about 4 to 6 weeks
Spirometry shows COPD; outpt follow up for full PFTs; can DC home with Dulera 200mcg BID, rinsing mouth after use
outpatient VCE per GI; continue PPI 40mg daily
Strongly recommend outpatient HST and pulmonary follow-up
Pt stable for DC home today; rec'd follow up with cardiology as well given her stage II diastolic dysfunction
No additional recommendations at this time. Pulmonary service will now sign off. Thank you for allowing us to be involved in the care of this patient. Please reconsult if there are any additional questions/concerns, or if patient's respiratory
status deteriorates.
Assessment
-
78-year-old female with history of persistent fatigue, chronic shortness of breath, intermittent hypoxia at home, told she had pneumonia on 04/02, presented to ED on 04/04. Found to have a hemoglobin less than 5. Heme-negative rectal exam in the
ED noted. We are asked to comment on shortness of breath
Impression:
Acute hypoxic respiratory insufficiency, 88%
Severe anemia, hemoglobin 4.9
Heme-negative stool
Iron deficiency anemia with iron saturation: 4%
Right pleural effusion, subpleural consolidation
Cannot rule out pneumonia
Hyponatremia � stable
Mildly elevated proBNP
Mild sinus tachycardia - now resolved (was reactive due to anemia)
Conditions present prior to admission
GERD, history of peptic ulcer disease
History of COPD, saw pulmonary in the past
Suspected sleep disordered breathing
Restless leg syndrome
Chronic venous stasis changes
Chronic lymphedema
Distant tobacco history, quit 1987 with a [id number] history smoking 2 PPD x 15 years
Plan/recommendations
At this time, patient appears to be comfortable and is improved
CT chest reviewed reveals small right pleural effusion with associated consolidation, air bronchograms - she does sound clear at the right base today
There is mild emphysema, and she reports a history of COPD
She states she has desaturation events at home where she goes down to 79%. This is been going on for months. She has not sought medical care
Chest x-ray suggest mild bibasilar infiltrates, flattened diaphragm on the lateral noted
Patient does describe some right-sided flank/rib discomfort
Moving forward
We will treat with doxycycline 100 mg twice a day for possible RLL pneumonia
It appears that she may have some chronic pleural-parenchymal process at the base with flattened diaphragm
With pulmonary follow-up she will require follow-up CT chest at some point
Discussed the possibility of an occult malignancy given her chronic symptoms
Discussed importance of pulmonary follow-up
Bedside spirometry performed this morning showing moderate COPD with significant improvement in the small lung [place], suspicious for asthma versus reactive airway disease � start LABA/ICS maintenance therapy with Dulera 200mcg (seems like this
inhaler would be approved by her insurance) - advised her to rinse mouth after use to avoid thrush
Ambulatory pulse oximetry prior to discharge - done today showing she needs 2 L/min with activity
TTE yesterday showed stage II diastolic dysfunction with abnormal relaxation and increased filling pressures with mild , trace AI and normal biventricular size and systolic function without regional WMA
I also suspect she has sleep disordered breathing although she denies this
She will require outpatient pulmonary follow-up with full PFT and additional testing as indicated
Endoscopy performed yesterday with EGD + colonoscopy did not show any etiology for her anemia; follow-up cold forceps pathology from patchy mildly congested mucosa in the stomach as well as localized moderate mucosal changes in the stomach (biopsies
done to r/o celiac disease); follow-up pathology from 6 mm polyp removed from hepatic flexure
- GI is planning for outpatient video capsule endoscopy, and to continue Protonix 40 mg daily for now
Reviewed with patient
Patient being prepared for discharge home today. No additional recommendations at this time. Pulmonary service will now sign off. Thank you for allowing us to be involved in the care of this patient. Please reconsult if there are any additional
questions/concerns, or if patient's respiratory status deteriorates.
Total time spent today was 37 minutes for this encounter. Time includes reviewing laboratory test/imaging results, reviewing pertinent medical records, obtaining and reviewing medical history, performing an appropriate exam, ordering medications,
tests and procedures. Time also includes documentation of this encounter, coordinating patient care and communicating with other healthcare professionals. Total time does not include separately billed tests performed on this date of service.
Subjective Data
-
Date of Service:
Date of Service: April 08, 2024
Chief Complaint: Pulmonary Follow Up
Subjective:
Patient seen and evaluated today at bedside. She feels well. No acute events reported overnight. , Ray, at bedside and all questions were answered. She currently denies chest pain, NELSON, abdominal pain, nausea, fevers or chills.
Review of Systems
General: Other (Negative unless mentioned above)
Objective Data
Data Reviewed
Vital Signs / I&O / Oxygen:
Vital Signs
Temp Pulse Resp BP Pulse Ox
98.2 F 90 17 161/85 96
04/08/24 07:40 04/08/24 07:40 04/08/24 07:40 04/08/24 07:40 04/08/24 07:40
Intake and Output
04/07/24 04/08/24 04/09/24
06:59 06:59 06:59
Intake Total 3360 / 3360 640 / 640
Balance 3360 / 3360 640 / 640
SaO2 96
Nasal Cannula flow liters per 2
minute
Physical Exam
General: Respiratory Distress (negative), Comfortable, Chills (negative) and Sweats (negative)
HEENT: Normocephalic and Anicteric
Cardiovascular: S1-S2, Murmur (STEFANIA heard best at [facility]), Rub (n) and Peripheral Edema (+2 LE pitting edema)
Respiratory: Clear, Wheeze (n), Crackles (negative), Rhonchi (n), Non-Labored Respirations and Stridor (n)
GI: Soft, Non Distended (Obese), Non Tender and Normal Bowel Sounds
Neurology: AO x 3 and Tremors (negative)
Skin: Warm, Dry, Cyanosis (n), Jaundice (n) and Rash (Chronic venous stasis dermatitis in the bilateral lower extremities)
[2024-04-08 09:54] LABS: Hematocrit 29.3 % (37.0-47.0); Hemoglobin 8.3 g/dL (12.0-16.0); Mean Corp Hgb Conc. 28.3 g/dL (33.0-37.0); Mean Corpuscular Hgb 21.2 pg (27.0-31.0); Mean Corpuscular Volume 74.9 fL (81.0-99.0); Mean Platelet Volume 9.8 fL (7.4-10.4); Platelet Count 297 10^3/uL (130-400); Red Blood Cell Count 3.91 10^6/uL (4.20-5.40); Red Cell Dist. Width 24.2 % (11.5-14.5); White Blood Cell Count 6.9 10^3/uL (4.8-10.8)
[2024-04-08 10:29] LABS: Blood Urea Nitrogen 5 mg/dl (7-17); Calcium 9.2 mg/dl (8.4-10.2); Carbon Dioxide 23 mmol/L (22-30); Chloride 101 mmol/L (98-107); Estimated Creatinine Clearance 70 ml/min; Glucose 87 mg/dl (70-99); eGFR > 60.00
[2024-04-08 10:43] LABS: Sodium 134 mmol/L (135-145)
[2024-04-08 11:38] VITALS: BP 156/67
[2024-04-08 12:56] VITALS: PULSE 91; O2SAT 97
--- NOTE | 2024-04-08 13:18 | W.PN.HOSP.TC ---
Addendum entered and electronically signed by Maureen Ku MD 04/08/24 16:28:
I saw and evaluated the patient independently. I reviewed the resident�s note and agree with findings and plan as documented by Dr. Monterroso.
GENERAL: well developed, well nourished, female in no apparent distress
HEENT: NC/AT--off O2
HEART: regular rate and rhythm, +S1, +S2
LUNGS : clear to auscultation bilaterally
ABDOM: soft, nontender, nondistended, + bowel sounds
EXT: no cyanosis, clubbing, or edema
NEUROLOGIC: grossly intact
Symptomatic Iron Deficiency Anemia--Iron 21, TIBC 474, percent sat 4, ferritin 5--EGD and colonoscopy without reason for TRAN--apprec GI--for outpt capsule study--s/p 3 units pRBC and IV iron--cont PPI--oral at d/c--likely needs iron supps at d/c
too--avoid NSAIDs
Chronic Hypoxemic respiratory insufficiency--pt states that her pulse ox at home runs 79%-84%--had COPD--never seen pulmonology, outpt f/u--for PFTs, follow up chest CT in 4-6 weeks--assess for home O2-- HRCT with centrilobular emphysema, no signs
of ILD/IPF
Patient is in need of oxygen at 2 liters/minute via nasal cannula continuously due to pulse oximetry of 88% on room air at rest. Oxygen will help to improve hypoxemia. Patient is mobile within the home. DuoNeb therapy has been tried and is
ineffective in treating hypoxemia related symptoms. Oxygen is needed to improve symptoms.
Essential Hypertension-Blood pressure significantly elevated here, SBP near 200 at one time--Uptitrate antihypertensive regimen as needed, BP goal <140/90
Restless leg syndrome--Stable on home ropinirole
Chronic lymphedema with venous stasis dermatitis--Monitor volume status clinically--Encourage use of compression stockings
DVT prophylaxis: SCDs
CODE STATUS: Full code
ok for d/c
Original Note:
Today's Communication/Plan
-
D/c to home with Home O2; outpatient iron supplementation; follow up with PCP, pulmonology, GI
Assessment / Plan
Assessment / Plan
1. Symptomatic Iron Deficiency Anemia
-Iron 21, TIBC 474, percent sat 4, ferritin 5; consistent with TRAN
-Unclear etiology, differentials include occult GIB versus severe iron deficiency; low suspicion for hemolysis or consumptive process
-Patient states she has had colonoscopies in the past, was told she did not need any more
- EGD (04/07): Localized mucosal changes, biopsies taken and sent for histology. No evidence of bleed.
- Colonoscopy (04/07): No evidence of bleed, 6 mm polyp at the hepatic flexure removed, internal hemorrhoids.
-States that she does have a distant history of peptic ulcer disease.
-Initial hemoglobin 4.9, s/p 3 units of PRBC with hemoglobin 8.3 this morning, stable over the past 4 days.
-Continue with IV PPI and avoid NSAIDs due to PUD history while admitted.
- Patient to be d/c today. Transition to oral ferrous supplementation.
- Patient received 4 days worth of IV iron infusions while admitted.
2. Hypoxemic respiratory insufficiency
- Patient notes a history of COPPatient is in need of oxygen on exertion due to pulse oximetry of 92% on room air at rest; 88% on room air with exertion.
-Patient was placed on 2L O2 via nasal cannula with saturation of 92%. Oxygen will help to improve hypoxemia.
Patient is mobile within the home. Albuterol therapy has been discussed and is ineffective in treating hypoxemia-related symptoms.
Oxygen will improve the patient's symptoms. D that is not managed by a svp business development.
- Likely chronic, pulm was consulted for intermittent hypoxemia
- No obvious acute findings on x-ray.
- HRCT with centrilobular emphysema, no signs of ILD/IPF
- Pulmonology planning for PFTs and 6 MWT
- Bronchodilators as needed
- Home O2 assessment today: SaO2 92% at rest; 88% while ambulatory; qualifies for home O2
- Outpatient follow up with pulmonology
3. Hypertension
-Stage II benign essential hypertension previously untreated
-Blood pressure significantly elevated here, SBP near 200 at one time
-Uptitrate antihypertensive regimen as needed, BP goal <140/90
- Patient currently stable in SBP 140-150 on Losartan 25mg PO qd and Amlodipine 2.5mg PO qd
4. Restless leg syndrome
-Stable on home ropinirole
5. Chronic lymphedema with venous stasis dermatitis
-Monitor volume status clinically
-Encourage use of compression stockings
DVT prophylaxis: SCDs
Diet: Regular
CODE STATUS: Full code
Anticipated Discharge: Today
Subjective/Interval History
-
Date of Service: April 08, 2024
Patient seen and examined while sitting up in bed and eating breakfast. Patient denies any acute complaints this morning. Specifically she denies chest pain, SOB, dizziness, palpitations, lower extremity edema. Patient was awaiting home O2
assessment at the time.
Objective Data
-
Labs:
Laboratory Results
04/08/24
08:49
WBC 6.9
Hgb 8.3 L
Hct 29.3 L
Plt Count 297
Sodium 134 L
Potassium 4.0
Chloride 101
Carbon Dioxide 23
BUN 5 L
Creatinine 0.7
Glucose 87
Calcium 9.2
Vital Signs:
Vital Signs
Temp Pulse Resp BP Pulse Ox
97.8 F 88 16 156/67 98
04/08/24 11:38 04/08/24 11:38 04/08/24 11:38 04/08/24 11:38 04/08/24 11:38
I&O
04/07/24 04/08/24 04/09/24
06:59 06:59 06:59
Intake Total 3360 / 3360 640 / 640
Balance 3360 / 3360 640 / 640
Review of Systems
-
History Source: Patient
Constitutional: Reports No Symptoms
Respiratory: Reports No Symptoms
Cardiac: Reports No Symptoms
Musculoskeletal: Reports No Symptoms
Physical Exam
-
General: No Apparent Distress, Comfortable and Conversant
HEENT: Normocephalic and Atraumatic
Respiratory: Clear to Auscultation
Cardiac: Regular Rhythm and S1/S2
GI: Soft, Nontender and Nondistended
Musculoskeletal: No Clubbing, No Cyanosis and No Edema
Skin: Warm
Neuro: Awake and Alert
Psych: Calm
Data Reviewed
-
Labs: Labs Reviewed by me and Discussed with Patient
[2024-04-08] MEDS: FERRLECIT 110 MG IV (14:12)
--- NOTE | 2024-04-08 14:12 | CM ---
Patient seen at bedside with physicians. Referral for home O2 to [facility] and per [facility] home O2 is delivered. CM faxed clinical and respiratory note. Patient for discharge home with family. Patient declined VN supports. IMM completed and signed form
placed on chart. CM will continue to follow for discharge planning needs.
Plan; home with O2; [facility]
[2024-04-08 15:05] VITALS: BP 161/62
--- NOTE | 2024-04-08 18:47 | W.DCSUMMARY ---
Addendum entered and electronically signed by Maureen Ku MD 04/09/24 06:50:
Read, reviewed, and agree. See same day progress note for additional details. Time spent coordinating care, DC planning, review of DC plan of care with resident, transition of care, review of records in EMR, med rec, consults, notes, d/w
consultants, nursing, family, and CM =32 minutes
Original Note:
Discharge Summary
Discharge Data
Date of Admission: 04/04/24
Date of Discharge: 04/08/24
Total time spent discharging patient (in min): 32
-
Pending Results: Yes
Hospital Course
Mariposa Pierson is a 78-year-old female who presented to the emergency department at [facility] on 04/04/2024 with reports of progressively worsening shortness of breath, dyspnea on exertion, fatigue, and nonproductive cough. While in the
emergency department, she was noted to be severely anemic with a hemoglobin level of 4.9 and hematocrit of 18.5%. The patient noted that she had tried to donate blood the week prior and was told that her hemoglobin was 10.2. The daughter provided
additional historical information, and stated that her mother she was up to 6 pounds of ice a day for a very long time. Stool testing in the emergency department was negative for heme. In addition to anemia, the patient was initially hypoxic on
presentation but this was relieved with nasal cannula. Chest x-ray performed in the emergency department also revealed a possible pneumonia. Thus the patient was admitted to outside hospital that evening for workup of anemia and possible pneumonia.
The patient was initially given 2 units of packed red blood cells which brought her hemoglobin level up to 6.7. She was then given 1 more unit of packed red blood cells. Due to the unclear etiology, a multitude of tests were performed. Iron
studies showed a low ferritin, low iron level, low saturation, and a high normal TIBC which was consistent with iron deficiency anemia. Following the total of 3 units of packed red blood cells, the patient was also started on 4 days of IV iron
infusions. As the patient's hemoglobin level stabilized, outpatient colonoscopy endoscopy was discussed with deputy fire chief. However the patient preferred to have these procedures performed in the hospital. EGD and colonoscopy were performed
on 04/07/2024, however neither provided an explanation for the patient's iron deficiency anemia. (There was patchy mildly congested mucosa in the stomach as well as localized moderate mucosal changes in the stomach and biopsies were performed to
rule out celiac disease. In addition a 6 mm polyp was removed from hepatic flexure. These histologies will need to be followed up.) The patient was advised to plan an outpatient video capsule endoscopy with the deputy fire chief. In addition, it
was recommended that the patient follow-up with outpatient CBC/iron studies. The deputy fire chief also recommended that the patient remain on 40 mg Protonix daily in the interim.
The patient was additionally worked up for hypoxemic respiratory insufficiency. This was suspected to be due to the patient's history of COPD. The patient was given bronchodilators as needed. Although she maintained normal O2 status on room air
while at rest, the patient would drop into the mid 80s while ambulatory. The patient noted that although she does not have a wheel braider or a treatment plan for COPD, she takes her oxygen saturation at home and has observed it as low as 79% when
ambulatory. The pulmonology team reviewed a CT chest which showed a small right pleural effusion with associated consolidation and air bronchograms. In addition, chest x-ray suggested mild bibasilar infiltrates. Patient was started on doxycycline
100 mg twice daily for 7 days total. The patient was advised to follow-up with pulmonology for a follow-up chest CT within 4 to 6 weeks. In addition, bedside spirometry was performed which showed moderate COPD but suspicious for asthma versus
reactive airway disease. Long-acting beta agonist/inhaled corticosteroid maintenance therapy was started with Dulera 200 mcg. In addition, a home O2 assessment was performed showing that the patient required 2 L/min with activity.
Following this workup, the patient was discharged from [facility] on 04/08/2024 for follow-up with her primary care provider, the deputy fire chief, and the wheel braider. The patient was started on Dulera 200 mcg as maintenance therapy,
and started on 2 L of home O2. The patient awaits biopsy results from her EGD/colonoscopy. It is advised that the patient receive a video capsule endoscopy. It is advised that the patient follow-up with outpatient pulmonary function test, repeat
CT of the chest in 4 to 6 weeks, and continue doxycycline for possible pneumonia for 5 more days.
Discharge Plan
-
Patient Disposition: Home (Routine Discharge)
Discharge Diagnosis/Procedures: Symptomatic Iron Deficiency Anemia
Hypoxemic Respiratory Insufficiency Secondary to COPD
Hypertension
Condition: Fair
Diet: Regular
Activity: As tolerated
Referrals:
Roger Dixon DO [Family Provider] -
Juan R Aguirre MD [Active] - in three to four weeks (full PFTs on day of office visit)
Prescriptions:
New
doxycycline hyclate 100 mg Capsule
100 mg PO Q12 5 Days Qty: 10 0RF
amlodipine 2.5 mg Tablet
2.5 mg PO DAILY Qty: 30 0RF
losartan 25 mg Tablet
25 mg PO DAILY Qty: 30 0RF
ferrous sulfate 325 mg (65 mg iron) tablet
325 mg PO BID Qty: 30 0RF
pantoprazole 40 mg tablet,delayed release (DR/EC)
40 mg PO DAILY Qty: 30 0RF
Dulera 200-5 mcg/actuation HFA aerosol inhaler
2 puff inhalation BID Qty: 8.8 0RF
Continued
ropinirole 2 mg Tablet
2 mg PO BID
sennosides 15 mg Tablet
15 mg PO DAILYPRN PRN (Reason: constipation)
Held
meloxicam 7.5 mg Tablet
7.5 mg PO BID
Hold Instructions: Hold until seen by primary care provider.
Discharge Orders:
Discharge Patient (As Directed); Ordered 04/08/24
Ordered By: Chepe Monterroso
Discharge Date and Time
Discharge Date/Time: 04/08/24 15:56
Print Language: ARMENIAN
== END 2024-04-08 15:56 | disposition home or self-care (01) | DRG 811 ==
LOC: 3 WEST ACU 21:20
PROVIDERS: Emergency Medicine; Internal Medicine; Internal Medicine Gastroenterology; ADMITTING PHYSICIAN Hospitalist; ATTENDING PHYSICIAN Internal Medicine; CONSULT PHYSICIAN Internal Medicine Critical Care Medicine; EMERGENCY PHYSICIAN Emergency Medicine; FAMILY PHYSICIAN Internal Medicine; OTHER PHYSICIAN Internal Medicine Gastroenterology
PROC: 30233N1 Transfusion of Nonautologous Red Blood Cells into Peripheral Vein, Percutaneous Approach (ICD-10-PCS; 2024-04-04)
PROC: 0DBL8ZZ Excision of Transverse Colon, Via Natural or Artificial Opening Endoscopic (ICD-10-PCS; 2024-04-07)
PROC: 0DB68ZX Excision of Stomach, Via Natural or Artificial Opening Endoscopic, Diagnostic (ICD-10-PCS; 2024-04-07)
PROC: 0DB98ZX Excision of Duodenum, Via Natural or Artificial Opening Endoscopic, Diagnostic (ICD-10-PCS; 2024-04-07)
DX: D50.9 Iron deficiency anemia, unspecified (principal); J18.9 Pneumonia, unspecified organism; J44.0 Chronic obstructive pulmonary disease with (acute) lower respiratory infection; E87.1 Hypo-osmolality and hyponatremia; I87.8 Other specified disorders of veins; I89.0 Lymphedema, not elsewhere classified; I10 Essential (primary) hypertension; R09.02 Hypoxemia; R06.89 Other abnormalities of breathing; G25.81 Restless legs syndrome; K63.5 Polyp of colon; K64.0 First degree hemorrhoids; M51.360 Other intervertebral disc degeneration, lumbar region with discogenic back pain only; K21.9 Gastro-esophageal reflux disease without esophagitis; I87.2 Venous insufficiency (chronic) (peripheral); K31.89 Other diseases of stomach and duodenum; K44.9 Diaphragmatic hernia without obstruction or gangrene; Z91.040 Latex allergy status; Z87.11 Personal history of peptic ulcer disease; Z86.16 Personal history of COVID-19; Z87.891 Personal history of nicotine dependence; Z88.2 Allergy status to sulfonamides; Z88.5 Allergy status to narcotic agent
CPT/HCPCS: 88305; 36430; 71046; 71250; 80048; 80053; 82607; 82728; 83540; 83550; 83880; 84443; 85025; 85027; 85045; 86850; 86900; 86901; 86920; 87502; 87811; 88342; 93005; 93306; 94060; 94640; 97116; 97162; 97166; 99285; J2916; P9016

== ENCOUNTER 2024-12-09 07:15 | Outpatient (RCR) | payer MEDICARE, OTHER, SELFPAY | END 2024-12-09 23:59 | disposition home or self-care (01) | LOC: RPT 07:15 | PROVIDERS: ATTENDING PHYSICIAN Internal Medicine | DX: I89.0 Lymphedema, not elsewhere classified (principal); Z73.6 Limitation of activities due to disability; M79.605 Pain in left leg; M79.604 Pain in right leg | CPT/HCPCS: 97163; 97530; 97760 ==

== ENCOUNTER → 2024-12-22 10:35 | Outpatient (REF) | payer MEDICARE, OTHER, SELFPAY ==
[2024-12-22 11:23] LABS: Hematocrit 43.8 % (37.0-47.0); Hemoglobin 14.1 g/dL (12.0-16.0); Mean Corp Hgb Conc. 32.2 g/dL (33.0-37.0); Mean Corpuscular Volume 97.6 fL (81.0-99.0); Platelet Count 221 10^3/uL (130-400); Red Cell Dist. Width 13.4 % (11.5-14.5)
[2024-12-22 12:34] LABS: Blood Urea Nitrogen 17 mg/dl (7-17); Calcium 9.5 mg/dl (8.4-10.2); Carbon Dioxide 29 mmol/L (22-30); Chloride 106 mmol/L (98-107); Glucose 95 mg/dl (70-99); Potassium 4.9 mmol/L (3.5-5.1); Sodium 140 mmol/L (135-145); eGFR > 60.00
== END ==
LOC: SDSPAT 10:35
PROVIDERS: ATTENDING PHYSICIAN Surgery; FAMILY PHYSICIAN Internal Medicine
DX: Z01.818 Encounter for other preprocedural examination (principal)
CPT/HCPCS: 36415; 80048; 85027; 93005

== ENCOUNTER 2025-01-05 06:14 | Day surgery (SDC) | payer MEDICARE, OTHER, SELFPAY ==
[2024-12-22 14:19] VITALS: BMI 37.1
[2025-01-05] VITALS (8 sets, daily range): BP systolic 140–154; BP diastolic 54–66; BMI 37.1
[2025-01-05] MEDS: NORMOSOL-R/PLASMALYTE-A 1000 IV (07:00)
--- NOTE | 2025-01-05 07:03 | HP.FOC2 ---
Focused History & Physical
Chief Complaint
HPI:
Chief Complaint: Umbilical hernia
HPI / Indication for Planned Procedure: Patient is a 79-year-old female with known umbilical hernia that she had been following expectantly.
Past medical history notable for hypertension, COPD, severe iron deficiency anemia in the past requiring transfusion. Over the past 4 to 5 months her umbilical hernia has enlarged in size and become intermittently painful/uncomfortable. Physical
examination confirmed the presence of a reducible umbilical hernia, approximately 3 cm fascial defect. After discussions regarding treatment options patient wished to pursue operative correction and presents today for scheduled surgery.
Relevant Past Medical History: Other (Restless leg, venous insufficiency, degenerative disc disease, COPD, arthritis, hypertension)
Relevant Social History: Negative
Relevant Family History: Negative
Relevant Past Surgical History: Positive for (Cervical spine surgery, open cholecystectomy and subsequent incisional hernia repair, carpal tunnel release, bunionectomy)
Medication
See Medication form for detailed medications: Yes
Medication List (including Herbals & OTC):
ropinirole 2 mg tablet 2 mg PO BID restless leg syndrome 04/25/23
meloxicam 7.5 mg tablet 7.5 mg PO BID pain 04/04/24
Held on 04/08/24. Instructions: Hold until seen by primary care provider.
furosemide 20 mg tablet 20 mg PO PRN PRN edema 12/29/24
metoprolol succinate 50 mg tablet,extended release 24 hr 50 mg PO DAILY 12/29/24
naproxen 220 mg-diphenhydramine 25 mg tablet (Aleve PM) 1 tab PO PRN PRN pain/sleep 12/29/24
potassium 1 chewable tab PO PRN PRN low potassium 12/29/24
sertraline 50 mg tablet 50 mg PO DAILY 12/29/24
Medications Reviewed: Yes
Allergies and Reactions
Patient has Allergies: Yes
Noted Allergies and Reactions:
Allergy/AdvReac Type Severity Reaction Status Date / Time
codeine Allergy Itching Verified 12/29/24 08:15
latex Allergy rash, Verified 12/29/24 08:15
itching
nickel Allergy rash, Verified 12/29/24 08:15
itcing
Sulfa (Sulfonamide Allergy rash, Verified 12/29/24 08:15
Antibiotics) itching
Pertinent Physical Exam
All Other Systems: Negative
Head/Neck: Normal
Lungs: Normal
Heart: Normal
Abdomen: Other (Reducible umbilical hernia)
Extremities: Normal
Neurological: Normal
Diagnosis / Assessment
79-year-old female presenting for scheduled operative correction symptomatic umbilical hernia
Plan / Procedure
Open umbilical hernia repair with mesh
Anesthesia/Sedation to be done by Anesthesia Provider: Yes
--- NOTE | 2025-01-05 07:06 | W.SUR.PREOP ---
Pre-Operative Surgical Note
-
I have examined this patient prior to the performance of the scheduled procedure.
The patient's condition is unchanged from the time of the current History and
Physical and the patient is able to undergo the scheduled procedure.
[2025-01-05] MEDS: TYLENOL 1000 MG PO (07:07)
--- NOTE | 2025-01-05 09:02 | W.IMMPOSTOP ---
Addendum entered and electronically signed by Aftab Moore MD 01/05/25 09:14:
#[id number]
Original Note:
Surgical Immed Post Op Note
-
Primary Surgeon: Aftab Moore MD
Assisting Surgeon: Fany LARA
Pre-op Diagnosis: Umbilical hernia
Post-op Diagnosis: Umbilical hernia, 3 cm
Procedure Performed: Open umbilical hernia pair with mesh; Ventralex ST 8 cm round
Anesthesia Type: General LMA; 1% lidocaine with epi and quarter percent Marcaine
Specimen / Cultures: None
Estimated Blood Loss: 6 mL
Complications: None immediate
Operative Findings: Umbilical hernia, reducible, 3 cm fascial defect. Underlay preperitoneal mesh repair with Ventralex ST 8 cm round. 4 transfascial 0 PDS stitches for fixation. Closure of the fascial defect with 0 PDS STRATAFIX symmetric.
== END 2025-01-05 10:35 | disposition home or self-care (01) ==
LOC: SDS 06:14
PROVIDERS: ATTENDING PHYSICIAN Surgery; FAMILY PHYSICIAN Internal Medicine
DX: K42.9 Umbilical hernia without obstruction or gangrene (principal)
CPT/HCPCS: 49593; C1781

== ENCOUNTER 2025-01-21 07:01 | Outpatient (RCR) | payer MEDICARE, OTHER, SELFPAY | END 2025-01-21 23:59 | disposition home or self-care (01) | LOC: RPT 07:01 | PROVIDERS: ATTENDING PHYSICIAN Internal Medicine | DX: I89.0 Lymphedema, not elsewhere classified (principal); Z73.6 Limitation of activities due to disability; M79.605 Pain in left leg; M79.604 Pain in right leg | CPT/HCPCS: 97140; 97530 ==

== ENCOUNTER 2025-02-25 11:49 | Outpatient (RCR) | payer MEDICARE, OTHER, SELFPAY | END 2025-02-25 23:59 | disposition home or self-care (01) | LOC: RPT 11:49 | PROVIDERS: ATTENDING PHYSICIAN Internal Medicine | DX: I89.0 Lymphedema, not elsewhere classified (principal); Z73.6 Limitation of activities due to disability; M79.605 Pain in left leg; M79.604 Pain in right leg | CPT/HCPCS: 97140; 97530 ==